=== PATIENT | male | born 1960 | race Caucasian/White ===

== ENCOUNTER 2017-08-11 11:03 | Day surgery (SDC) | payer MEDICARE ==
[2017-08-08 12:06] VITALS: BMI 23.3
[2017-08-11 12:09] LABS: BASO # 0.04 K/mm3 (0.0-2.0); BASO % 0.5 % (0.0-3.0); EOS # 0.2 (0.0-0.7); EOS % 2.7 % (1.5-5.0); GRAN # 4.09 (1.4-6.5); GRAN % 55.3 % (50.0-68.0); HEMATOCRIT 37.5 % (42.0-52.0); LYMPH # 2.3 (1.2-3.4); LYMPH % 30.7 % (22.0-35.0); MEAN CORPUSCULAR HEMOGLOBIN 28.8 pg (25.0-35.0); MEAN CORPUSCULAR HGB CONC 33.1 g/dl (31.0-37.0); MEAN PLATELET VOLUME 10.7 fl (7.0-11.0); MONO # 0.8 (0.1-0.6); MONO % 10.8 % (1.0-6.0); RED CELL DISTRIBUTION WIDTH 13.4 % (11.5-14.5); WHITE BLOOD COUNT 7.4 10^3/ul (4.5-11.0)
[2017-08-11 12:21] LABS: BLOOD UREA NITROGEN 16 mg/dL (7-21); CALCIUM 10.1 mg/dL (8.4-10.5); CARBON DIOXIDE 26 mmol/L (21-33); CHLORIDE 103 mmol/L (98-107); CHOLESTEROL 144 mg/dL (130-200); GFR AFRICAN-AMERICAN > 60; GLUCOSE,RANDOM 263 mg/dL (70-110); POTASSIUM 4.7 mmol/L (3.6-5.0); SODIUM 138 mmol/L (132-148)
[2017-08-11 12:28] LABS: INR 1.07 (0.93-1.08); PARTIAL THROMBOPLASTIN TIME 32.5 Seconds (25.1-36.5)
[2017-08-11 12:31] VITALS: O2SAT 100
[2017-08-11] MEDS ORDERED: Midazolam 2 MG/2 ML VIAL ONE ×2 (13:10→14:45)
[2017-08-11] MEDS ORDERED: Iodixanol 320 MG/ML 200 ML BOTTLE IV ONE (13:11)
[2017-08-11] MEDS ORDERED: Iohexol 350mgl/ml 50 ML ONE (13:11)
[2017-08-11] MEDS ORDERED: Lidocaine 2% Inj (20ml) ONE (13:12)
[2017-08-11] MEDS: Sodium Chloride 0.9% 1,000 ML IV SCH (15:50)
--- NOTE | 2017-08-11 17:06 | CP.PCM.PN ---
Subjective - Date & Time of Evaluation Date of Evaluation: 08/11/17 Time of Evaluation: 17:04 - Subjective Subjective: 4& M with hx of severe , CAD s/p CABG x 4, DM, HTN, Hypothyroidism and TAVR candidate Braught to [facility] for SVG to Diag intervention S/P Successful SVG to Diag (95% stenosis) with KOREY Normal EF Other grafts patent Admit to Hospitalist service for overnight observation Please continue all his Meds Hold Metformin for 2 days ISS Start Plavix 75 daily Gentle Hydration F/U with my office Friday Objective - Vital Signs/Intake and Output Vital Signs (last 24 hours): Temp Pulse Resp BP Pulse Ox 98 F 62 18 144/71 100 08/11/17 15:40 08/11/17 15:40 08/11/17 15:40 08/11/17 15:40 08/11/17 11:55 - Medications Medications: Current Medications Acetaminophen (Tylenol 325mg Tab) 650 mg PO Q4H PRN PRN Reason: Pain, Mild (1-3) Aspirin (Ecotrin) 81 mg PO DAILY BRET Atorvastatin Calcium (Lipitor) 40 mg PO DIN BRET Clopidogrel Bisulfate (Plavix) 75 mg PO DAILY [facility] Sodium Chloride (Sodium Chloride 0.9%) 1,000 mls @ 40 mls/hr IV .Q24H BRET - Labs Labs: 08/11/17 11:55 08/11/17 11:55 PT 11.8 SECONDS (9.4-12.5) 08/11/17 11:55 INR 1.07 (0.93-1.08) 08/11/17 11:55 APTT 32.5 Seconds (25.1-36.5) 08/11/17 11:55
--- NOTE | 2017-08-11 17:51 | CP.PCM.HP ---
<Matt Bonds - Last Filed: 08/11/17 18:02> History of Present Illness - History of Present Illness History of Present Illness: This is a 56 year old male with a past medical history of sever , CAD s/p CABGX4, dm, htn, hypothyrodism and TAVR candidate who comes in for SVG to Diagonal intervention. The patient successfully completed SVG to Diag (95% stenosis) with KOREY. The patient does report a decrease in exercise tolerance. The patient denies any chest pain, shortness of breath, nausea, vomiting, changes in vision, fevers, chills, tremors, headaches, recent sick contacts, syncopal episodes or any other complaints. PMD: Dr. Liz Past medical history: Diabetes, aortic stenosis, hyperlipidemia Medications: See MAR Allergies: NKDA Socialhx: Former smoker. Occasional beer drinker. Lives with girlfriend. Able to do all ADL's. Present on Admission - Present on Admission Any Indicators Present on Admission: No Review of Systems - Constitutional Constitutional: As Per HPI - EENT Eyes: As Per HPI Ears: As Per HPI Nose/Mouth/Throat: As Per HPI - Cardiovascular Cardiovascular: As Per HPI - Respiratory Respiratory: As Per HPI - Gastrointestinal Gastrointestinal: As Per HPI - Musculoskeletal Musculoskeletal: As Per HPI - Integumentary Integumentary: As Per HPI - Neurological Neurological: As Per HPI - Psychiatric Psychiatric: As Per HPI - Endocrine Endocrine: As Per HPI - Hematologic/Lymphatic Hematologic: As Per HPI Past Patient History - Tetanus Immunizations Tetanus Immunization: Up to Date - Past Social History Smoking Status: Never Smoked - CARDIAC Hx Pacemaker: No - PULMONARY Hx Respiratory Disorders: No - NEUROLOGICAL Hx Paralysis: No - HEENT Hx HEENT Problems: No - RENAL Hx Chronic Kidney Disease: No - ENDOCRINE/METABOLIC Hx Endocrine Disorders: Yes Other/Comment: DM - HEMATOLOGICAL/ONCOLOGICAL Hx Blood Transfusions: No - INTEGUMENTARY Hx Dermatological Problems: No - MUSCULOSKELETAL/RHEUMATOLOGICAL Hx Musculoskeletal Disorders: No - GASTROINTESTINAL Hx Gastrointestinal Disorders: No - GENITOURINARY/GYNECOLOGICAL Hx Genitourinary Disorders: No - PSYCHIATRIC Hx Emotional Abuse: No Hx Physical Abuse: No Hx Substance Use: No - SURGICAL HISTORY Hx Surgeries: Yes - ANESTHESIA Hx Anesthesia Reactions: No Hx Malignant Hyperthermia: No Meds Allergies/Adverse Reactions: Allergies Allergy/AdvReac Type Severity Reaction Status Date / Time No Known Allergies Allergy Verified 04/25/13 01:06 Physical Exam - Head Exam Head Exam: ATRAUMATIC, NORMAL INSPECTION, NORMOCEPHALIC - Eye Exam Eye Exam: EOMI, Normal appearance, PERRL. absent: Periorbital tenderness Pupil Exam: NORMAL ACCOMODATION. absent: Irregular, Unequal - ENT Exam ENT Exam: Mucous Membranes Moist, Normal Exam, Normal Oropharynx - Neck Exam Neck exam: Positive for: Normal Inspection. Negative for: Lymphadenopathy, Meningismus, Thyromegaly - Respiratory Exam Respiratory Exam: Clear to Auscultation Bilateral, NORMAL BREATHING PATTERN. absent: Chest Wall Tenderness, Prolonged Expiratory Phase, Respiratory Distress - Cardiovascular Exam Cardiovascular Exam: REGULAR RHYTHM, RRR, +S1, +S2. absent: Gallop, Rubs - GI/Abdominal Exam GI & Abdominal Exam: Normal Bowel Sounds, Soft. absent: Organomegaly, Tenderness - Back Exam Back exam: NORMAL INSPECTION. absent: CVA tenderness (L), CVA tenderness (R), paraspinal tenderness - Neurological Exam Neurological exam: Alert, CN II-XII Intact, Oriented x3 - Psychiatric Exam Psychiatric exam: Normal Affect, Normal Mood - Skin Skin Exam: Dry, Intact, Normal Color Results - Vital Signs Recent Vital Signs: Last Vital Signs Temp 98 F 08/11/17 15:40 Pulse 62 08/11/17 15:40 Resp 18 08/11/17 15:40 BP 144/71 08/11/17 15:40 Pulse Ox 100 08/11/17 11:55 - Labs Result Diagrams: 08/11/17 11:55 08/11/17 11:55 Labs: Laboratory Results - last 24 hr 08/11/17 08/11/17 08/11/17 11:55 11:55 11:55 WBC 7.4 D RBC 4.31 Hgb 12.4 L Hct 37.5 L MCV 87.0 MCH 28.8 MCHC 33.1 RDW 13.4 Plt Count 253 MPV 10.7 Gran % 55.3 Lymph % (Auto) 30.7 [place] % (Auto) 10.8 H Eos % (Auto) 2.7 Baso % (Auto) 0.5 Gran # 4.09 Lymph # 2.3 [place] # 0.8 H Eos # 0.2 Baso # 0.04 PT 11.8 INR 1.07 APTT 32.5 Sodium 138 Potassium 4.7 Chloride 103 Carbon Dioxide 26 Anion Gap 14 BUN 16 Creatinine 0.7 L Est GFR ( Amer) > 60 Est GFR (Non-Af Amer) > 60 Random Glucose 263 H Calcium 10.1 Triglycerides 107 Cholesterol 144 LDL Cholesterol Direct 76 HDL Cholesterol 45 Blood Type Antibody Screen BBK History Checked 08/11/17 11:55 WBC RBC Hgb Hct MCV MCH MCHC RDW Plt Count MPV Gran % Lymph % (Auto) [place] % (Auto) Eos % (Auto) Baso % (Auto) Gran # Lymph # [place] # Eos # Baso # PT INR APTT Sodium Potassium Chloride Carbon Dioxide Anion Gap BUN Creatinine Est GFR ( Amer) Est GFR (Non-Af Amer) Random Glucose Calcium Triglycerides Cholesterol LDL Cholesterol Direct HDL Cholesterol Blood Type A POSITIVE Antibody Screen Negative BBK History Checked Patient has bt Assessment & Plan - Assessment and Plan (Free Text) Assessment: This is a 56 year old male with a past medical history of sever , CAD s/p CABGX4, dm, htn, hypothyrodism and TAVR candidate who comes in for SVG to Diagonal intervention. Plan: 1. S/p Cardiac cath placement. -s/p SVG to Diagonal intervention performed by Dr. Liz. -Patient to be monitored overnight and discharged in the A.M. pending no acute event. 2. h/o Aortic stenosis -Patient a candidate for TAVR. -To be followed up on outpatient basis. 3.D.M. -Hold home meds. -Start ISS. -Accuchecks. Diabetic diet. 4.Hypertension -restart home meds tomorrow morning. -Will continue to monitor closely. 5.Hypothyroidism -continue home meds. <Ester Pizano - Last Filed: 08/12/17 15:08> Results - Vital Signs Recent Vital Signs: Last Vital Signs Temp 98.1 F 08/12/17 12:00 Pulse 68 08/12/17 12:00 Resp 18 08/12/17 12:00 BP 148/69 08/12/17 12:00 Pulse Ox 100 08/12/17 05:56 - Labs Result Diagrams: 08/12/17 06:00 08/12/17 06:00 Labs: Laboratory Results - last 24 hr 08/11/17 08/12/17 08/12/17 22:06 02:00 06:00 WBC RBC Hgb Hct MCV MCH MCHC RDW Plt Count MPV Gran % Lymph % (Auto) [place] % (Auto) Eos % (Auto) Baso % (Auto) Gran # Lymph # [place] # Eos # Baso # Sodium 139 Potassium 3.8 Chloride 105 Carbon Dioxide 28 Anion Gap 10 BUN 12 Creatinine 0.7 L Est GFR ( Amer) > 60 Est GFR (Non-Af Amer) > 60 POC Glucose (mg/dL) 275 H 273 H Random Glucose 165 H Calcium 9.0 Total Bilirubin 0.6 AST 31 ALT 49 Alkaline Phosphatase 52 Total Protein 6.4 Albumin 3.6 Globulin 2.8 Albumin/Globulin Ratio 1.3 08/12/17 08/12/17 08/12/17 06:00 07:35 11:08 WBC 6.0 RBC 3.86 Hgb 11.0 L Hct 33.5 L MCV 86.8 MCH 28.5 MCHC 32.8 RDW 13.5 Plt Count 202 MPV 10.4 Gran % 55.3 Lymph % (Auto) 29.0 [place] % (Auto) 11.9 H Eos % (Auto) 3.5 Baso % (Auto) 0.3 Gran # 3.33 Lymph # 1.8 [place] # 0.7 H Eos # 0.2 Baso # 0.02 Sodium Potassium Chloride Carbon Dioxide Anion Gap BUN Creatinine Est GFR ( Amer) Est GFR (Non-Af Amer) POC Glucose (mg/dL) 151 H 364 H Random Glucose Calcium Total Bilirubin AST ALT Alkaline Phosphatase Total Protein Albumin Globulin Albumin/Globulin Ratio Attending/Attestation - Attestation I have personally seen and examined this patient.: Yes I have fully participated in the care of the patient.: Yes I have reviewed all pertinent clinical information: Yes Notes (Text): I have seen and examined the patient at bedside. Agree with the above note with the following additions/ exceptions: Briefly this is 56 year old male with history of essential hypertension, DM-2, hypothyroidism, CAD s/p CABG, Severe and TAVR candidate who had a cardiac cath today and found to have diagonal stenosis s/p drug eluting stent. Echo revealed normal EF. Patient feels well and denies any complaints. Continue aspirin. Plavix was started. Advised to hold metformin for 48 hours. Start gentle hydration and ISS. Upon discharge patient will follow up with Dr Liz within 3-[address] Ester Pizano
--- NOTE | 2017-08-11 18:48 | CARD ---
APPROVED REPORT EKG Measurement Heart [id number] <Conclusion> Normal sinus rhythm Left ventricular hypertrophy with repolarization abnormality Abnormal ECG
[2017-08-11] MEDS: Insulin Detemir 100 units/ml Vial (Levemir) SC SCH (22:17)
[2017-08-12] MEDS: Sodium Chloride 0.9% 1,000 ML IV SCH (04:24)
[2017-08-12 06:57] LABS: BASO # 0.02 K/mm3 (0.0-2.0); BASO % 0.3 % (0.0-3.0); EOS # 0.2 (0.0-0.7); EOS % 3.5 % (1.5-5.0); GRAN # 3.33 (1.4-6.5); GRAN % 55.3 % (50.0-68.0); HEMATOCRIT 33.5 % (42.0-52.0); LYMPH # 1.8 (1.2-3.4); MEAN CELL VOLUME 86.8 fl (80.0-105.0); MEAN CORPUSCULAR HEMOGLOBIN 28.5 pg (25.0-35.0); MEAN CORPUSCULAR HGB CONC 32.8 g/dl (31.0-37.0); MEAN PLATELET VOLUME 10.4 fl (7.0-11.0); MONO # 0.7 (0.1-0.6); MONO % 11.9 % (1.0-6.0); RED CELL DISTRIBUTION WIDTH 13.5 % (11.5-14.5)
[2017-08-12 07:25] LABS: ALB/GLOB RATIO 1.3 (1.1-1.8); ALKALINE PHOSPHATASE 52 U/L (38-126); ALT/SGPT 49 U/L (7-56); AST/SGOT 31 U/L (17-59); BILIRUBIN,TOTAL 0.6 mg/dL (0.2-1.3); BLOOD UREA NITROGEN 12 mg/dL (7-21); CARBON DIOXIDE 28 mmol/L (21-33); CHLORIDE 105 mmol/L (98-107); GFR AFRICAN-AMERICAN > 60; GLUCOSE,RANDOM 165 mg/dL (70-110); POTASSIUM 3.8 mmol/L (3.6-5.0); SODIUM 139 mmol/L (132-148); TOTAL PROTEIN 6.4 g/dL (5.8-8.3)
[2017-08-12] MEDS: Insulin Detemir 100 units/ml Vial (Levemir) SC SCH (09:40)
[2017-08-12 11:06] VITALS: PULSE 68
[2017-08-12 13:09] VITALS: BP 148/69; RESP 18; TEMP 98.1
--- NOTE | 2017-08-12 14:08 | CP.PCM.DIS ---
<Matt Bonds - Last Filed: 08/12/17 15:53> Provider - Provider Attending physician: Ester Pizano MD Primary care physician: Jennifer Medrano MD Time Spent in preparation of Discharge (in minutes): 45 Hospital Course - Lab Results Lab Results: Most Recent Lab Values WBC 6.0 10^3/ul (4.5-11.0) 08/12/17 06:00 RBC 3.86 10^6/uL (3.5-6.1) 08/12/17 06:00 Hgb 11.0 g/dL (14.0-18.0) L 08/12/17 06:00 Hct 33.5 % (42.0-52.0) L 08/12/17 06:00 MCV 86.8 fl (80.0-105.0) 08/12/17 06:00 MCH 28.5 pg (25.0-35.0) 08/12/17 06:00 MCHC 32.8 g/dl (31.0-37.0) 08/12/17 06:00 RDW 13.5 % (11.5-14.5) 08/12/17 06:00 Plt Count 202 10^3/uL (120.0-450.0) 08/12/17 06:00 MPV 10.4 fl (7.0-11.0) 08/12/17 06:00 Gran % 55.3 % (50.0-68.0) 08/12/17 06:00 Lymph % (Auto) 29.0 % (22.0-35.0) 08/12/17 06:00 [place] % (Auto) 11.9 % (1.0-6.0) H 08/12/17 06:00 Eos % (Auto) 3.5 % (1.5-5.0) 08/12/17 06:00 Baso % (Auto) 0.3 % (0.0-3.0) 08/12/17 06:00 Gran # 3.33 (1.4-6.5) 08/12/17 06:00 Lymph # 1.8 (1.2-3.4) 08/12/17 06:00 [place] # 0.7 (0.1-0.6) H 08/12/17 06:00 Eos # 0.2 (0.0-0.7) 08/12/17 06:00 Baso # 0.02 K/mm3 (0.0-2.0) 08/12/17 06:00 PT 11.8 SECONDS (9.4-12.5) 08/11/17 11:55 INR 1.07 (0.93-1.08) 08/11/17 11:55 APTT 32.5 Seconds (25.1-36.5) 08/11/17 11:55 Sodium 139 mmol/L (132-148) 08/12/17 06:00 Potassium 3.8 mmol/L (3.6-5.0) 08/12/17 06:00 Chloride 105 mmol/L (98-107) 08/12/17 06:00 Carbon Dioxide 28 mmol/L (21-33) 08/12/17 06:00 Anion Gap 10 (10-20) 08/12/17 06:00 BUN 12 mg/dL (7-21) 08/12/17 06:00 Creatinine 0.7 mg/dl (0.8-1.5) L 08/12/17 06:00 Est GFR ( Amer) > 60 08/12/17 06:00 Est GFR (Non-Af Amer) > 60 08/12/17 06:00 POC Glucose (mg/dL) 364 mg/dL (65-110) H 08/12/17 11:08 Random Glucose 165 mg/dL (70-110) H 08/12/17 06:00 Calcium 9.0 mg/dL (8.4-10.5) 08/12/17 06:00 Total Bilirubin 0.6 mg/dL (0.2-1.3) 08/12/17 06:00 AST 31 U/L (17-59) 08/12/17 06:00 ALT 49 U/L (7-56) 08/12/17 06:00 Alkaline Phosphatase 52 U/L (38-126) 08/12/17 06:00 Total Protein 6.4 g/dL (5.8-8.3) 08/12/17 06:00 Albumin 3.6 g/dL (3.0-4.8) 08/12/17 06:00 Globulin 2.8 gm/dL 08/12/17 06:00 Albumin/Globulin Ratio 1.3 (1.1-1.8) 08/12/17 06:00 Triglycerides 107 mg/dL (35-160) 08/11/17 11:55 Cholesterol 144 mg/dL (130-200) 08/11/17 11:55 LDL Cholesterol Direct 76 mg/dL (0-129) 08/11/17 11:55 HDL Cholesterol 45 mg/dL (29-60) 08/11/17 11:55 Blood Type A POSITIVE 08/11/17 11:55 Antibody Screen Negative 08/11/17 11:55 BBK History Checked Patient has bt 08/11/17 11:55 - Hospital Course Hospital Course: This is a 56 year old male with a past medical history of sever , CAD s/p CABGX4, dm, htn, hypothyrodism and TAVR candidate who comes in for SVG to Diagonal intervention. The patient successfully completed SVG to Diag (95% stenosis) with KOREY. The patient does report a decrease in exercise tolerance. The patient denies any chest pain, shortness of breath, nausea, vomiting, changes in vision, fevers, chills, tremors, headaches, recent sick contacts, syncopal episodes or any other complaints. The patient was admitted for observation s/p coronary stent placement. While admitted the patient was seen by Dr. Liz. The patient was seen this morning with no complaints. The patient was referred to a Study Director to get a list of acceptable food options since he has a history of CAD. The patient was discharged with instruction to follow up with Dr. Liz and to return to emergency department for any new or worsening symptoms. Discharge Exam - Head Exam Head Exam: ATRAUMATIC, NORMAL INSPECTION, NORMOCEPHALIC - Eye Exam Eye Exam: EOMI, Normal appearance, PERRL Pupil Exam: NORMAL ACCOMODATION, PERRL - ENT Exam ENT Exam: Mucous Membranes Moist, Normal Oropharynx - Respiratory Exam Respiratory Exam: Clear to PA & Lateral, NORMAL BREATHING PATTERN, UNREMARKABLE - Cardiovascular Exam Cardiovascular Exam: REGULAR RHYTHM, +S1, +S2, Systolic Murmur - GI/Abdominal Exam GI & Abdominal Exam: Normal Bowel Sounds, Unremarkable - Extremities Exam Extremities exam: full ROM - Neurological Exam Neurological exam: Alert, CN II-XII Intact, Oriented x3 - Psychiatric Exam Psychiatric exam: Normal Affect, Normal Mood - Skin Skin Exam: Dry, Intact Discharge Plan - Discharge Medications Prescriptions: Clopidogrel [Plavix] 75 mg PO DAILY #30 tab Clopidogrel [Plavix] 75 mg PO DAILY #14 tab - Follow Up Plan Condition: GOOD Disposition: HOME/ ROUTINE Instructions: Coronary Artery Disease (GEN), Heart Healthy Diet (GEN), Coronary Angioplasty (GEN) Additional Instructions: Patient advised to f/u with PMD within one week of discharge. Follow up with on Friday. Patient advised to restart Metformin 72 hours after cardiac stent placement. Patient given information by Study Director for foods acceptable for his diet. Patient strongly advised to return to emergency department for any new or worsening symptoms. Referrals: Jennifer Medrano MD [Primary Care Provider] - <Ester Pizano - Last Filed: 08/12/17 17:38> Provider - Provider Attending physician: Ester Pizano MD Primary care physician: Jennifer Medrano MD Hospital Course - Lab Results Lab Results: Most Recent Lab Values WBC 6.0 10^3/ul (4.5-11.0) 08/12/17 06:00 RBC 3.86 10^6/uL (3.5-6.1) 08/12/17 06:00 Hgb 11.0 g/dL (14.0-18.0) L 08/12/17 06:00 Hct 33.5 % (42.0-52.0) L 08/12/17 06:00 MCV 86.8 fl (80.0-105.0) 08/12/17 06:00 MCH 28.5 pg (25.0-35.0) 08/12/17 06:00 MCHC 32.8 g/dl (31.0-37.0) 08/12/17 06:00 RDW 13.5 % (11.5-14.5) 08/12/17 06:00 Plt Count 202 10^3/uL (120.0-450.0) 08/12/17 06:00 MPV 10.4 fl (7.0-11.0) 08/12/17 06:00 Gran % 55.3 % (50.0-68.0) 08/12/17 06:00 Lymph % (Auto) 29.0 % (22.0-35.0) 08/12/17 06:00 [place] % (Auto) 11.9 % (1.0-6.0) H 08/12/17 06:00 Eos % (Auto) 3.5 % (1.5-5.0) 08/12/17 06:00 Baso % (Auto) 0.3 % (0.0-3.0) 08/12/17 06:00 Gran # 3.33 (1.4-6.5) 08/12/17 06:00 Lymph # 1.8 (1.2-3.4) 08/12/17 06:00 [place] # 0.7 (0.1-0.6) H 08/12/17 06:00 Eos # 0.2 (0.0-0.7) 08/12/17 06:00 Baso # 0.02 K/mm3 (0.0-2.0) 08/12/17 06:00 PT 11.8 SECONDS (9.4-12.5) 08/11/17 11:55 INR 1.07 (0.93-1.08) 08/11/17 11:55 APTT 32.5 Seconds (25.1-36.5) 08/11/17 11:55 Sodium 139 mmol/L (132-148) 08/12/17 06:00 Potassium 3.8 mmol/L (3.6-5.0) 08/12/17 06:00 Chloride 105 mmol/L (98-107) 08/12/17 06:00 Carbon Dioxide 28 mmol/L (21-33) 08/12/17 06:00 Anion Gap 10 (10-20) 08/12/17 06:00 BUN 12 mg/dL (7-21) 08/12/17 06:00 Creatinine 0.7 mg/dl (0.8-1.5) L 08/12/17 06:00 Est GFR ( Amer) > 60 08/12/17 06:00 Est GFR (Non-Af Amer) > 60 08/12/17 06:00 POC Glucose (mg/dL) 364 mg/dL (65-110) H 08/12/17 11:08 Random Glucose 165 mg/dL (70-110) H 08/12/17 06:00 Calcium 9.0 mg/dL (8.4-10.5) 08/12/17 06:00 Total Bilirubin 0.6 mg/dL (0.2-1.3) 08/12/17 06:00 AST 31 U/L (17-59) 08/12/17 06:00 ALT 49 U/L (7-56) 08/12/17 06:00 Alkaline Phosphatase 52 U/L (38-126) 08/12/17 06:00 Total Protein 6.4 g/dL (5.8-8.3) 08/12/17 06:00 Albumin 3.6 g/dL (3.0-4.8) 08/12/17 06:00 Globulin 2.8 gm/dL 08/12/17 06:00 Albumin/Globulin Ratio 1.3 (1.1-1.8) 08/12/17 06:00 Triglycerides 107 mg/dL (35-160) 08/11/17 11:55 Cholesterol 144 mg/dL (130-200) 08/11/17 11:55 LDL Cholesterol Direct 76 mg/dL (0-129) 08/11/17 11:55 HDL Cholesterol 45 mg/dL (29-60) 08/11/17 11:55 Blood Type A POSITIVE 08/11/17 11:55 Antibody Screen Negative 08/11/17 11:55 BBK History Checked Patient has bt 08/11/17 11:55 Attending/Attestation - Attestation I have personally seen and examined this patient.: Yes I have fully participated in the care of the patient.: Yes I have reviewed all pertinent clinical information, including history, physical exam and plan: Yes Notes (Text): I have seen and examined the patient at bedside. Agree with the above note with the following additions/ exceptions: Briefly this is 56 year old male with history of essential hypertension, DM-2, hypothyroidism, CAD s/p CABG, Severe and TAVR candidate who had a cardiac cath and found to have diagonal stenosis s/p drug eluting stent. Echo revealed normal EF. Patient feels well and denies any complaints. Continue aspirin and plavix. Advised the patient to hold metformin for 48 hours. Upon discharge patient will follow up with Dr Liz within 3-[address] Ester Pizano
--- NOTE | 2017-08-18 08:26 | CARDCATH ---
PROCEDURE DATE: 08/11/2017 PROCEDURE: Percutaneous coronary angioplasty of the saphenous vein graft to diagonal artery and drug-eluting stent placement. REFERRING PHYSICIAN: Jennifer Medrano MD. PERFORMING PHYSICIAN: Doug Liz MD CLINICAL INDICATIONS: 1. Angina. 2. Dyspnea. 3. Severe aortic stenosis. 4. Diabetes. 5. History of coronary artery disease, status post CABG x4. 6. Hyperlipidemia. PROCEDURE: After informed consent, the patient was prepped and draped in the usual sterile fashion. A 2% lidocaine was given in the right groin for local anesthesia. Using micropuncture technique, 6-Georgian sheath was introduced into the right common femoral artery. The patient was preloaded with aspirin, Plavix, and IV heparin. ACT was maintained above 250. A 6-Georgian JR4 guide catheter was engaged into the saphenous vein graft. Initial angiogram confirmed 95% anastomotic lesion of the vein graft to diagonal artery. There was FIDENCIO-2 flow distally. The lesion was predilated using 2.0 x 15 complaint balloon. Stented with 2.25 x 23 Xience Alpine with excellent final angiographic results and brisk FIDENCIO-3 flow. CONCLUSION: Successful coronary intervention of the saphenous vein graft to the diagonal artery. Recommend dual antiplatelet therapy for one year. Continue aspirin, statin, and beta-blockers. Doug Liz MD
== END 2017-08-12 13:31 | disposition home or self-care (01) ==
LOC: CATH 11:03 → 2RSO 15:48 → CATH 08-12 13:31
PROVIDERS: ATTEND Hospitalist
DX: I25.10 Atherosclerotic heart disease of native coronary artery without angina pectoris (principal); E03.9 Hypothyroidism, unspecified; E11.9 Type 2 diabetes mellitus without complications; E78.5 Hyperlipidemia, unspecified; I10 Essential (primary) hypertension; I35.0 Nonrheumatic aortic (valve) stenosis; Z79.82 Long term (current) use of aspirin; Z95.1 Presence of aortocoronary bypass graft; Z95.5 Presence of coronary angioplasty implant and graft; Z98.890 Other specified postprocedural states
CPT/HCPCS: 36415 ×2; 80048; 80053; 80061; 82948 ×2; 85025 ×2; 85610; 85730; 86850; 86900; 93005; 99152; 99153; C1725; C1760; C1769; C1874; C1887; C1894; C9600; J1644 ×2; J2250; J3010; J7040 ×2; Q9967

== ENCOUNTER 2018-10-10 15:22 | Inpatient (IN) | payer MEDICARE, OTHER ==
[2018-10-10 15:31] VITALS: BMI 23.1
--- NOTE | 2018-10-10 15:50 | ED PDOC ---
Arrival/HPI - General Chief Complaint: Chest Pain Time Seen by Provider: 10/10/18 15:28 Historian: Patient, Family (two nieces) - History of Present Illness Narrative History of Present Illness (Text): 10/10/18 15:50 A 57 year old male, whose past medical history includes 3 CABBG surgeries, stent, hypertension, diabetes, and hyperlipidemia, presents to the emergency department complaining of shortness of breath and chest pain for 1 week. Patient describe pain as sharp, non radiating and also reports experiencing leg pain along with cough with white sputum. Patient states he saw his primary care doctor, Dr. Medrano, who urged him to go to the hospital for evaluation. Patient reports he was sitting when chest pain occurred and has taken his regular medication to no relief of symptoms. Patient notes he recently traveled and came back from [facility] over a week ago before chest pain symptoms started. Patient denies any fever, chills, diarrhea, nausea, vomiting, headache, dizziness, or any other complaints. PMD: Jennifer Marsh Time/Duration: 1 week Symptom Onset: Gradual Symptom Course: Unchanged Activities at Onset: Light Context: Home Past Medical History - Provider Review Nursing Documentation Reviewed: Yes - Infectious Disease Hx of Infectious Diseases: None - Tetanus Immunization Tetanus Immunization: Up to Date - Cardiac Hx Coronary Artery Disease: Yes Hx Hypertension: Yes - Pulmonary Hx Respiratory Disorders: No - Neurological Hx Paralysis: No - HEENT Hx HEENT Disorder: No - Renal Hx Renal Disorder: No - Endocrine/Metabolic Hx Endocrine Disorders: Yes Other/Comment: DM - Hematological/Oncological Hx Blood Transfusions: No - Integumentary Hx Dermatological Disorder: No - Musculoskeletal/Rheumatological Hx Musculoskeletal Disorders: No - Gastrointestinal Hx Gastrointestinal Disorders: No - Genitourinary/Gynecological Hx Genitourinary Disorders: No - Psychiatric Hx Depression: Yes Hx Substance Use: No - Past Surgical History Past Surgical History: No Previous - Surgical History Hx Coronary Stent: Yes (x3) - Anesthesia Hx Malignant Hyperthermia: No - Suicidal Assessment Feels Threatened In Home Enviroment: No Family/Social History - Physician Review Nursing Documentation Reviewed: Yes Family/Social History: No Known Family HX Smoking Status: Never Smoked Hx Alcohol Use: No Hx Substance Use: No Hx Substance Use Treatment: No Allergies/Home Meds Allergies/Adverse Reactions: Allergies No Known Allergies Allergy (Verified 10/15/17 13:07) Home Medications: Home Meds Medication Instructions Recorded Confirmed Acetaminophen [Tylenol 325mg tab] 325 mg PO PRN PRN 08/01/17 10/10/18 Aspirin [Ecotrin] 81 mg PO QAM 08/01/17 10/10/18 Atorvastatin [Lipitor] 80 mg PO QPM 08/01/17 10/10/18 Carvedilol [Coreg] 6.25 mg PO BID 08/01/17 10/10/18 Furosemide [Lasix] 20 mg PO QAM 08/01/17 10/10/18 Insulin Glargine, Recombina 50 unit SC HS 08/01/17 10/10/18 [Lantus] Lisinopril [Zestril] 10 mg PO QAM 08/01/17 10/10/18 MetFORMIN [glucoPHAGE] 1,000 mg PO BID 08/01/17 10/10/18 Review of Systems - Physician Review All systems were reviewed & negative as marked: Yes - Review of Systems Constitutional: absent: Fevers, Other (chills) Respiratory: SOB Cardiovascular: Chest Pain Gastrointestinal: absent: Diarrhea, Nausea, Vomiting Musculoskeletal: Other (leg pain) Neurological: absent: Headache, Dizziness Physical Exam Vital Signs Reviewed: Yes Temperature: Afebrile Blood Pressure: Hypertensive Pulse: Regular Respiratory Rate: Normal - Systems Exam Head: Present: Atraumatic, Normocephalic Pupils: Present: PERRL Extroacular Muscles: Present: EOMI Conjunctiva: Present: Normal Mouth: Present: Moist Mucous Membranes Pharnyx: Present: Normal Neck: No: JVD Respiratory/Chest: Present: Clear to Auscultation, Good Air Exchange. No: Respiratory Distress, Accessory Muscle Use Cardiovascular: Present: Regular Rate and Rhythm, Normal S1, S2. No: Murmurs Abdomen: No: Tenderness, Distention, Peritoneal Signs Back: Present: Normal Inspection Upper Extremity: Present: Normal Inspection. No: Cyanosis, Edema Lower Extremity: Present: Normal Inspection. No: Edema Neurological: Present: GCS=15, CN II-XII Intact, Speech Normal, Motor Func Grossly Intact (5 out of 5) Skin: Present: Other (scar midchest related to CABBG) Psychiatric: Present: Alert, Oriented x 3, Normal Insight, Normal Concentration Medical Decision Making ED Course and Treatment: 10/10/18 15:50 Impression: 57 year old male presents to the emergency department complaining of shortness of breath and chest pain Plan: -- EKG -- Labs -- CBC -- D Dimer -- Chest X-ray -- Aspirin -- Urinalysis -- Reassess and disposition Prior Visits: Notes and results from previous visits were reviewed. Patient was seen in the ER on 10/15/17 for shortness of breath and was discharged when symptoms improved. Progress Notes: 10/10/18 15:52 EKG: Ordered, reviewed, and independently interpreted the EKG. Rate : 75 BPM Rhythm : NSR Interpretation : Normal axis. - Scribe Statement The provider has reviewed the documentation as recorded by the Gloria Walker All medical record entries made by the Gloria were at my direction and personally dictated by me. I have reviewed the chart and agree that the record accurately reflects my personal performance of the history, physical exam, medical decision making, and the department course for this patient. I have also personally directed, reviewed, and agree with the discharge instructions and disposition. Disposition/Present on Arrival - Present on Arrival Any Indicators Present on Arrival: No History of DVT/PE: No History of Uncontrolled Diabetes: No Urinary Catheter: No History of Decub. Ulcer: No History Surgical Site Infection Following: None - Disposition Have Diagnosis and Disposition been Completed?: Yes Diagnosis: Chest pain Disposition: HOSPITALIZED Disposition Time: 17:55 Condition: GOOD
[2018-10-10 16:23] LABS: BASO # 0.04 K/mm3 (0.0-2.0); BASO % 0.5 % (0.0-3.0); EOS # 0.2 (0.0-0.7); EOS % 3.1 % (1.5-5.0); HEMOGLOBIN 11.3 g/dL (14.0-18.0); LYMPH # 1.4 (1.2-3.4); LYMPH % 18.6 % (22.0-35.0); MEAN CELL VOLUME 86.5 fl (80.0-105.0); MEAN CORPUSCULAR HEMOGLOBIN 28.3 pg (25.0-35.0); MEAN CORPUSCULAR HGB CONC 32.8 g/dl (31.0-37.0); MEAN PLATELET VOLUME 10.5 fl (7.0-11.0); MONO # 0.8 (0.1-0.6); MONO % 10.2 % (1.0-6.0); RBC 3.99 10^6/uL (3.5-6.1); RED CELL DISTRIBUTION WIDTH 14.1 % (11.5-14.5); WHITE BLOOD COUNT 7.5 10^3/uL (4.5-11.0)
[2018-10-10 16:34] LABS: ALB/GLOB RATIO 1.2 (1.1-1.8); ALBUMIN 3.5 g/dL (3.0-4.8); ALT/SGPT 33 U/L (7-56); AST/SGOT 34 U/L (17-59); BLOOD UREA NITROGEN 12 mg/dL (7-21); CALCIUM 9.6 mg/dL (8.4-10.5); GFR NON-AFRICAN AMERICAN > 60
[2018-10-10 16:44] LABS: TROPONIN I 0.04 ng/mL
[2018-10-10] MEDS ORDERED: Dextrose 50% SYRINGE Inj (50 ml) IV PRN (19:11)
--- NOTE | 2018-10-10 19:33 | CP.PCM.HP ---
History of Present Illness - History of Present Illness History of Present Illness: HISTORY & PHYSICAL NOTE FOR HOSPITALIST SERVICE- DR. PIPO Walsh PGY1 57 y/o M with PMHx of CAD s/p CABG x 4, severe s/p TAVR @ [facility] [place](per pt), DM, HTN, hypothyroidism presents to ED with complaints of SOB that's been ongoing for the past week. Pt noted that he can normally walk about 1/2 block without getting short of breath, but recently when he stands up to go to bathroom he feels SOB. Symptoms are worse with exertion, alleviated with rest. He is reporting that he currently feeling short of breath, but denies current chest pain, however reported chest pain to ED staff. Pt had seen his insurance customer service specialist/PMD Dr. Medrano yesterday who advised him to visit ED. He had taken aspirin before arriving to ED. He reports that he sleeps with 2 pillows at night, and will feel short of breath if he lies flat. He also reports he has had bilateral leg cramping for several months. Pt recently traveled to [facility] a week ago before chest pain began. He denies fevers, chills, headache, dizziness, palpitations, nausea, vomiting, constipation, diarrhea, dysuria. PMH: CAD s/p CABG x 4, severe s/p TAVR @ [facility] [place](per pt), DM, HTN, hypothyroidism All: Denies PSH: R shoulder surgery Hosp: Has been to [facility] in the past FH: Father: Heart disease, Brother @ age 47 from [place] Meds: metformin 1000mg bid, calcium 500mg tid, clopidogrel 75mg qd, furosemide 20mg, aspirin 81mg, carvedilol 6.25, lisinopril 10mg, levemir 50u HS PMD: & Line Supply: Dr. Medrano Pharmacy: [facility] pharmacy Present on Admission - Present on Admission Any Indicators Present on Admission: No Review of Systems - Review of Systems Review of Systems: per HPI Past Patient History - Infectious Disease Hx of Infectious Diseases: None - Tetanus Immunizations Tetanus Immunization: Up to Date - Past Social History Smoking Status: Never Smoked - CARDIAC Hx Hypertension: Yes - PULMONARY Hx Respiratory Disorders: No - NEUROLOGICAL Hx Paralysis: No - HEENT Hx HEENT Problems: No - RENAL Hx Chronic Kidney Disease: No - ENDOCRINE/METABOLIC Hx Endocrine Disorders: Yes Other/Comment: DM - HEMATOLOGICAL/ONCOLOGICAL Hx Blood Transfusions: No - INTEGUMENTARY Hx Dermatological Problems: No - MUSCULOSKELETAL/RHEUMATOLOGICAL Hx Musculoskeletal Disorders: No - GASTROINTESTINAL Hx Gastrointestinal Disorders: No - GENITOURINARY/GYNECOLOGICAL Hx Genitourinary Disorders: No - PSYCHIATRIC Hx Depression: Yes Hx Substance Use: No - SURGICAL HISTORY Hx Coronary Stent: Yes (x3) - ANESTHESIA Hx Malignant Hyperthermia: No Meds Allergies/Adverse Reactions: Allergies Allergy/AdvReac Type Severity Reaction Status Date / Time No Known Allergies Allergy Verified 10/15/17 13:07 Physical Exam - Constitutional Appears: Well, Non-toxic, No Acute Distress - Head Exam Head Exam: NORMAL INSPECTION, NORMOCEPHALIC - Eye Exam Eye Exam: EOMI, Normal appearance - ENT Exam ENT Exam: Mucous Membranes Moist, Normal Exam - Neck Exam Additional comments: R sided JVD - Respiratory Exam Respiratory Exam: Clear to Auscultation Bilateral, NORMAL BREATHING PATTERN - Cardiovascular Exam Cardiovascular Exam: Gallop, REGULAR RHYTHM, +S1 - GI/Abdominal Exam GI & Abdominal Exam: Soft. absent: Distended, Tenderness - Extremities Exam Extremities exam: Positive for: normal inspection. Negative for: calf tenderness, joint swelling, pedal edema - Back Exam Back exam: NORMAL INSPECTION - Neurological Exam Neurological exam: Alert, Oriented x3 - Psychiatric Exam Psychiatric exam: Normal Affect, Normal Mood - Skin Skin Exam: Dry, Intact, Warm Results - Vital Signs Recent Vital Signs: Last Vital Signs Temp 98.3 F 10/10/18 16:19 Pulse 77 10/10/18 18:11 Resp 17 10/10/18 18:11 BP 169/60 H 10/10/18 18:11 Pulse Ox 96 10/10/18 18:11 - Labs Result Diagrams: 10/10/18 16:12 10/10/18 16:12 Labs: Laboratory Results - last 24 hr 10/10/18 10/10/18 10/10/18 16:12 16:12 16:12 WBC 7.5 RBC 3.99 Hgb 11.3 L Hct 34.5 L MCV 86.5 MCH 28.3 MCHC 32.8 RDW 14.1 Plt Count 247 MPV 10.5 Neut % (Auto) 67.6 Lymph % (Auto) 18.6 L [place] % (Auto) 10.2 H Eos % (Auto) 3.1 Baso % (Auto) 0.5 Lymph # (Auto) 1.4 [place] # (Auto) 0.8 H Eos # (Auto) 0.2 Baso # (Auto) 0.04 Absolute Neuts (auto) 5.06 D-Dimer, Quantitative 221 Sodium 137 Potassium 4.1 Chloride 102 Carbon Dioxide 29 Anion Gap 11 BUN 12 Creatinine 0.7 L Est GFR ( Amer) > 60 Est GFR (Non-Af Amer) > 60 Random Glucose 199 H Calcium 9.6 Magnesium 1.5 L Total Bilirubin 0.4 AST 34 ALT 33 Alkaline Phosphatase 72 Lactate Dehydrogenase 559 Total Creatine Kinase 90 Troponin I 0.04 Total Protein 6.5 Albumin 3.5 Globulin 3.0 Albumin/Globulin Ratio 1.2 Assessment & Plan - Assessment and Plan (Free Text) Assessment: 57 y/o M with PMHx of CAD s/p CABG x 4, severe s/p TAVR @ [facility] [place](per pt), DM, HTN, hypothyroidism presents to ED with complaints of 1 week shortness of breath Plan: Acute on Chronic systolic vs diastolic Heart Failure NYHA class III-IV CXR reveals vascular congestion. EKG reveals no acute ST/T wave changes from p revious EKG Lasix IVP daily Initial troponin indeterminate. Continue to trend Q6h Repeat EKG in 6h Echocardiogram Cardiology consult Strict I&Os Daily weight CAD s/p CABG x 4 Aspirin not given in ED as pt had taken at home continue DAPT with aspirin/plavix continue atorvastatin f/u lipid panel in am HTN continue home carvedilol continue home lisinopril IDDM2 pt takes home metformin, on hold for possible cath continue levemir 50u SC HS insulin sliding scale-medium Case seen, examined and discussed with attending physician, Dr. Shelly Walsh PGY1
[2018-10-10] MEDS ORDERED: Magnesium Sulfate 2 gm/50 ml 2 GM/50 ML BAG IVPB ONE (19:39)
[2018-10-10] MEDS: Insulin Detemir 100 units/ml Vial (Levemir) SC SCH (22:59)
[2018-10-10] MEDS: Insulin Reg-MEDIUM-Coverage SC SCH (23:03)
[2018-10-11 04:19] LABS: BASO # 0.03 K/mm3 (0.0-2.0); BASO % 0.5 % (0.0-3.0); EOS # 0.2 (0.0-0.7); EOS % 3.3 % (1.5-5.0); HEMOGLOBIN 11.2 g/dL (14.0-18.0); LYMPH # 1.5 (1.2-3.4); LYMPH % 24.7 % (22.0-35.0); MEAN CELL VOLUME 85.5 fl (80.0-105.0); MEAN CORPUSCULAR HGB CONC 32.7 g/dl (31.0-37.0); MONO # 0.6 (0.1-0.6); MONO % 10.4 % (1.0-6.0); RED CELL DISTRIBUTION WIDTH 14.1 % (11.5-14.5); WHITE BLOOD COUNT 6.2 10^3/uL (4.5-11.0)
[2018-10-11 04:39] LABS: TROPONIN I 0.04 ng/mL
[2018-10-11 04:40] LABS: ALB/GLOB RATIO 1.2 (1.1-1.8); ALBUMIN 3.5 g/dL (3.0-4.8); ALT/SGPT 30 U/L (7-56); AST/SGOT 24 U/L (17-59); BLOOD UREA NITROGEN 14 mg/dL (7-21); CALCIUM 9.3 mg/dL (8.4-10.5); GFR NON-AFRICAN AMERICAN > 60; HDL CHOLESTEROL 28 mg/dL (29-60); LDL CHOLESTEROL 87 mg/dL (0-129)
[2018-10-11] MEDS: Enoxaparin 40 mg Syringe SC SCH (10:43)
[2018-10-11] MEDS: Insulin Reg-MEDIUM-Coverage SC SCH ×4 (10:51→22:34)
--- NOTE | 2018-10-11 11:25 | CP.PCM.PN ---
<Essence Walsh - Last Filed: 10/11/18 11:20> Subjective - Date & Time of Evaluation Date of Evaluation: 10/11/18 Time of Evaluation: 11:20 - Subjective Subjective: INTERNAL MEDICINE PROGRESS NOTE FOR DR. JACQUELINE Walsh PGY1 Pt seen and examined at bedside this am. Pt is resting comfortably. He reports shortness of breath and has been urinating frequently. He otherwise denies 12 point ROS. Objective - Vital Signs/Intake and Output Vital Signs (last 24 hours): Temp Pulse Resp BP Pulse Ox 98 F 97 H 20 140/80 95 10/11/18 06:00 10/11/18 06:00 10/11/18 06:00 10/11/18 10:44 10/11/18 06:00 Intake and Output: 10/11/18 10/11/18 06:59 18:59 Intake Total 0 Output Total 0 Balance 0 - Medications Medications: Current Medications Aspirin (Ecotrin) 81 mg PO QAM [facility] Last Admin: 10/11/18 10:46 Dose: 81 mg Atorvastatin Calcium (Lipitor) 80 mg PO QPM [facility] Carvedilol (Coreg) 6.25 mg PO BID [facility] Last Admin: 10/11/18 10:46 Dose: 6.25 mg Clopidogrel Bisulfate (Plavix) 75 mg PO DAILY [facility] Last Admin: 10/11/18 10:46 Dose: 75 mg Dextrose (Dextrose 50% Inj) 0 ml IV STAT PRN; Protocol PRN Reason: Hypoglycemia Protocol Enoxaparin Sodium (Lovenox) 40 mg SC DAILY [facility]; Protocol Last Admin: 10/11/18 10:43 Dose: 40 mg Furosemide (Lasix) 40 mg IVP DAILY [facility] Last Admin: 10/11/18 10:44 Dose: 40 mg Dextrose (Dextrose 5% In Water 1000 Ml) 1,000 mls @ 0 mls/hr IV .Q0M PRN; Protocol PRN Reason: Hypoglycemia Protocol Insulin Detemir (Levemir) 50 unit SC HS [facility] Last Admin: 10/10/18 22:59 Dose: 50 units Insulin Human Regular (Humulin R Med) 0 units SC ACHS [facility]; Protocol Last Admin: 10/11/18 10:51 Dose: 1 units Lisinopril (Zestril) 10 mg PO QAM [facility] Last Admin: 10/11/18 10:46 Dose: 10 mg Pantoprazole Sodium (Protonix Inj) 40 mg IVP DAILY [facility] Last Admin: 10/11/18 10:44 Dose: 40 mg - Labs Labs: 10/11/18 04:00 10/11/18 04:00 - Constitutional Appears: Well, Non-toxic, No Acute Distress - Head Exam Head Exam: NORMAL INSPECTION, NORMOCEPHALIC - Eye Exam Eye Exam: EOMI, Normal appearance - ENT Exam ENT Exam: Mucous Membranes Moist, Normal Exam - Neck Exam Additional comments: No JVD - Respiratory Exam Respiratory Exam: Clear to Ausculation Bilateral, NORMAL BREATHING PATTERN - Cardiovascular Exam Cardiovascular Exam: REGULAR RHYTHM, +S1, +S2 - GI/Abdominal Exam GI & Abdominal Exam: Soft, Normal Bowel Sounds. absent: Tenderness - Extremities Exam Extremities Exam: Normal Inspection. absent: Calf Tenderness - Back Exam Back Exam: NORMAL INSPECTION - Neurological Exam Neurological Exam: Alert, Awake, Oriented x3 - Psychiatric Exam Psychiatric exam: Normal Affect, Normal Mood - Skin Skin Exam: Dry, Intact, Warm Assessment and Plan - Assessment and Plan (Free Text) Assessment: 57 y/o M with PMHx of CAD s/p CABG x 4, severe s/p TAVR @ [facility](per pt), DM, HTN, hypothyroidism presents to ED with complaints of 1 week shortness of breath Plan: Acute on Chronic systolic vs diastolic Heart Failure NYHA class III-IV CXR reveals vascular congestion. EKG reveals no acute ST/T wave changes from previous EKG. troponin x 3: indeterminate. BNP 1340 continue lasix IVP daily echocardiogram pending Cardiology consult Strict I&Os Daily weights CAD s/p CABG x 4 Aspirin not given in ED as pt had taken at home continue DAPT with aspirin/plavix continue atorvastatin lipid panel wnl HTN continue home carvedilol continue home lisinopril IDDM2 pt takes home metformin, on hold for possible cath continue levemir 50u SC HS insulin sliding scale-medium DVT/GI: Lovenox/protonix Case seen, examined and discussed with attending physician, Dr. Shelly Walsh PGY1 <Seble Cope - Last Filed: 10/11/18 12:13> Objective - Vital Signs/Intake and Output Vital Signs (last 24 hours): Temp Pulse Resp BP Pulse Ox 98 F 97 H 20 140/80 95 10/11/18 06:00 10/11/18 06:00 10/11/18 06:00 10/11/18 10:44 10/11/18 06:00 Intake and Output: 10/11/18 10/11/18 06:59 18:59 Intake Total 0 Output Total 0 Balance 0 - Medications Medications: Current Medications Aspirin (Ecotrin) 81 mg PO QAM [facility] Last Admin: 10/11/18 10:46 Dose: 81 mg Atorvastatin Calcium (Lipitor) 80 mg PO QPM [facility] Carvedilol (Coreg) 6.25 mg PO BID [facility] Last Admin: 10/11/18 10:46 Dose: 6.25 mg Clopidogrel Bisulfate (Plavix) 75 mg PO DAILY [facility] Last Admin: 10/11/18 10:46 Dose: 75 mg Dextrose (Dextrose 50% Inj) 0 ml IV STAT PRN; Protocol PRN Reason: Hypoglycemia Protocol Enoxaparin Sodium (Lovenox) 40 mg SC DAILY [facility]; Protocol Last Admin: 10/11/18 10:43 Dose: 40 mg Furosemide (Lasix) 40 mg IVP DAILY [facility] Last Admin: 10/11/18 10:44 Dose: 40 mg Dextrose (Dextrose 5% In Water 1000 Ml) 1,000 mls @ 0 mls/hr IV .Q0M PRN; Protocol PRN Reason: Hypoglycemia Protocol Insulin Detemir (Levemir) 50 unit SC HS [facility] Last Admin: 10/10/18 22:59 Dose: 50 units Insulin Human Regular (Humulin R Med) 0 units SC ACHS [facility]; Protocol Last Admin: 10/11/18 11:48 Dose: 1 units Lisinopril (Zestril) 10 mg PO QAM [facility] Last Admin: 10/11/18 10:46 Dose: 10 mg Pantoprazole Sodium (Protonix Inj) 40 mg IVP DAILY [facility] Last Admin: 10/11/18 10:44 Dose: 40 mg - Labs Labs: 10/11/18 04:00 10/11/18 04:00 Attending/Attestation - Attestation I have personally seen and examined this patient.: Yes I have fully participated in the care of the patient.: Yes I have reviewed all pertinent clinical information, including history, physical exam and plan: Yes Notes (Text): 10/11/18 12:02 Attending note; Patient seen and examined with resident. Patient is alert and awake. Denies any chest pain. Complaining of exertional shortness of breath. Denies any nausea, vomiting. Denies any abdominal pain. Denies any urinary, bowel symptoms. Patient is a 57-year-old male with PMHx of CAD s/p CABG x 4, severe s/p TAVR @ [facility], DM, HTN, presents to ED with complaints of 1 week shortness of breath. 1. Chest discomfort and shortness of breath; patient with significant past medical history of coronary disease. showed nonspecific ST-T changes. Cardiac enzymes 3 negative. Echocardiogram ordered. Patient follows up with cardiology Dr. Medrano. Cardiology evaluation requested. 2. Shortness of breath; elevated BNP. Started on IV Lasix. Monitor input and output closely. Daily weight ordered. we will Follow-up echocardiogram. 3. Coronary artery disease and stent placement; continue aspirin, Plavix and Lipitor. 4. Hypertension; continue lisinopril, Lasix and Coreg. 5. Diabetes; continue Levemir. Hold metformin for now. Monitor fingerstick closely. DVT/GI prophylaxis. Upon discharge the patient will follow up with PMD Dr. Medrano. 10/11/18 12:12
[2018-10-11] MEDS ORDERED: Potassium Chloride 20 mEq ER Tab PO ONE (15:00)
--- NOTE | 2018-10-11 17:54 | RAD ---
Date of service: 10/10/2018 HISTORY: chest pain COMPARISON: Comparison is made with 01/07/2013 FINDINGS: LUNGS: Mild pulmonary vascular congestion noted. Otherwise no significant interval changes. PLEURA: No significant pleural effusion identified, no pneumothorax apparent. CARDIOVASCULAR: Atherosclerotic calcification noted at the thoracic aorta. Normal cardiac size. Post cardiac surgery changes are noted. OSSEOUS STRUCTURES: No significant abnormalities. VISUALIZED UPPER ABDOMEN: Normal. OTHER FINDINGS: None. IMPRESSION: Mild pulmonary vascular congestion.
--- NOTE | 2018-10-11 21:32 | CARD ---
APPROVED REPORT Date of service: 10/10/2018 EKG Measurement Heart [id number] <Conclusion> Normal sinus rhythm Nonspecific T wave abnormality Abnormal ECG
[2018-10-11] MEDS: Insulin Detemir 100 units/ml Vial (Levemir) SC SCH (22:45)
--- NOTE | 2018-10-12 00:39 | CON ---
DATE: 10/11/2018 REASON FOR DICTATION: Tyrell Duarte. REASON FOR CONSULTATION: Coronary artery disease, cardiac evaluation, admitted with shortness of breath, history of CABG, history of TAVR, and history of PTCA. BRIEF CLINICAL HISTORY: This is a 57-year-old male with past medical history significant for coronary artery bypass surgery many years ago, history of PTCA of SVG to diagonal 1 in possibly 09/2017, history of severe aortic stenosis, status post TAVR, hypertension, hypothyroidism, came in with complaint of one-week history of progressively worsening shortness of breath, which has been getting worse, so the patient came to the emergency room. The patient used to follow Dr. Jennifer Medrano and Dr. Doug Liz and has been scheduled for stress test 2 weeks from now. Denies any chest pain. PAST MEDICAL HISTORY: Significant for coronary artery disease, status post CABG artery many years ago, history of aortic stenosis, history of TAVR, and history of PTCA of SVG to diagonal. History of last catheterization done by Dr. Doug Liz on 07/23/2017, at that time, the cardiac catheterization revealed left main essentially free of significant disease, bifurcate LAD and circumflex, LAD mid total occluded, circumflex mid 100% occluded, right coronary artery 99% stenosis to mid region, SVG to PDA patent, SVG to obtuse marginal 1 is patent and jump graft to diagonal 1 which is 95% stenosis. Left internal mammary artery to LAD is patent. Ejection fraction 45%, mild global hypokinesis, EDP was in the range of 22. Right heart catheterization as follows; pulmonary capillary wedge pressure 25, PA 64/41, RV 65/15, and RA 18. Cardiac output 4.5 liter/minute and cardiac index 2.6 liter. Calculated aortic valve area is 0.6 cm2 by Hakki's equation. The patient has SVG to diagonal 1, was done PTCA at that time at [facility] on 08/04/2017. Cardiac catheterization was on 07/23/2017. Then later on, the patient had TAVR done. The patient had last echo on 07/23/2017 done in [facility] that reveal ejection fraction 55%, right ventricular function is normal, status post mitral valve repair, aortic valve leaflet [id number] calcification, aortic valve area calculated 0.4 cm2, peak gradient 62 mm, meant gradient 40, and LVOT 1.9 cm2. SOCIAL HISTORY: Denies any smoking. Denies any history of alcohol abuse. CURRENT MEDICATIONS: The patient is on metformin, lisinopril, insulin, furosemide, Lasix, Plavix 75 mg daily, atorvastatin, and aspirin. REVIEW OF SYSTEMS: As per HPI. PHYSICAL EXAMINATION: VITAL SIGNS: As follows; height of the patient 5 feet 7 inches, weight of the patient 144 pounds, and body mass index 22 kg/m2. Temperature afebrile, heart rate 70, and blood pressure 140/80. HEENT: PERRLA. Extraocular muscles are intact. NECK: Supple. No carotid bruit or thyromegaly. CHEST: Clear to auscultation. HEART: S1 and S2 regular. ABDOMEN: Soft. EXTREMITIES: Clubbing and cyanosis negative. LABORATORY DATA: EKG shows normal sinus, rate of 78, and no acute ST-T changes noted. Blood workup; WBC 6.2, hemoglobin 11.2, hematocrit 34.2, and platelet count 230. Chemistry shows sodium 140, potassium 3.6, chloride of 103, carbon dioxide 32, anion gap of 9, BUN of 14, and creatinine 0.9. Troponin 0.4 . Hemoglobin A1c 10.7. Chest x-ray showed mild pulmonary congestion. BNP 1340. IMPRESSION: A 57-year-old male with past medical history significant for coronary artery disease, status post coronary artery bypass graft in the past, history of percutaneous transluminal coronary angioplasty of saphenous vein graft to diagonal 1 on 08/04/2017, history of cardiac catheterization shows elevated right heart pressure as well as pulmonary hypertension as well as occluded left anterior descending, occluded circumflex, occluded right coronary artery, patent graft left internal mammary artery to left anterior descending artery, patent saphenous vein graft to right posterior descending artery, patent saphenous vein graft to obtuse marginal 1 and saphenous vein graft to diagonal with 95% stenosis, which has subsequently percutaneous transluminal coronary angioplasty was done. The patient transcatheter aortic valve replacement done, admitted with acute decompensated congestive heart failure. The patient is scheduled for stress test two weeks by Dr. Medrano recommended, so far no evidence of acute myocardial infarction. RECOMMENDATIONS: We will do echo to assess LV function. Further recommendations will be made after the echo. We will get lipid profile, TSH, and hemoglobin A1c. Repeat the chest x-ray after diuresis. We will continue diuresis. Monitor electrolytes. We will follow with you and transfer care tomorrow to Dr. Duarte. We will give the DVT prophylaxis and continue UMESH inhibitors, low-dose beta-carolyn probably Coreg, atorvastatin and we will follow. Further recommendation depends on hospital course and the finding of initial workup. We will follow with you. Thank you Dr. Cope for providing us the opportunity in taking care of the patient, Adelina Busch. We will transfer care tomorrow to Dr. Fabián Duarte. Bailee Sharp MD
[2018-10-12 07:12] LABS: BASO # 0.04 K/mm3 (0.0-2.0); BASO % 0.6 % (0.0-3.0); EOS # 0.4 (0.0-0.7); EOS % 5.6 % (1.5-5.0); HEMOGLOBIN 11.4 g/dL (14.0-18.0); LYMPH % 30.7 % (22.0-35.0); MEAN CORPUSCULAR HEMOGLOBIN 28.1 pg (25.0-35.0); MEAN CORPUSCULAR HGB CONC 32.7 g/dl (31.0-37.0); MEAN PLATELET VOLUME 10.1 fl (7.0-11.0); MONO # 0.8 (0.1-0.6); MONO % 11.7 % (1.0-6.0); RBC 4.06 10^6/uL (3.5-6.1); WHITE BLOOD COUNT 6.4 10^3/uL (4.5-11.0)
[2018-10-12] MEDS: Insulin Reg-MEDIUM-Coverage SC SCH ×4 (07:39→22:11)
[2018-10-12 07:41] LABS: B-TYPE NATRIURETIC PEPTIDE 449 pg/mL (0-450)
[2018-10-12 07:59] LABS: ALB/GLOB RATIO 1.1 (1.1-1.8); ALBUMIN 3.4 g/dL (3.0-4.8); ALT/SGPT 27 U/L (7-56); AST/SGOT 24 U/L (17-59); BLOOD UREA NITROGEN 18 mg/dL (7-21); GFR NON-AFRICAN AMERICAN > 60
[2018-10-12] MEDS: Enoxaparin 40 mg Syringe SC SCH (09:28)
--- NOTE | 2018-10-12 11:16 | CP.PCM.PN ---
<Essence Walsh - Last Filed: 10/12/18 12:41> Subjective - Date & Time of Evaluation Date of Evaluation: 10/12/18 Time of Evaluation: 11:14 - Subjective Subjective: INTERNAL MEDICINE PROGRESS NOTE FOR DR. LIANA Walsh PGY1 Pt seen and examined at bedside this am. He reports mild SOB with increased SOB with exertion. He otherwise denies 12 point ROS Objective - Vital Signs/Intake and Output Vital Signs (last 24 hours): Temp Pulse Resp BP Pulse Ox 97.9 F 65 20 148/73 99 10/12/18 05:43 10/12/18 10:00 10/12/18 05:43 10/12/18 09:29 10/12/18 05:43 Intake and Output: 10/12/18 10/12/18 06:59 18:59 Intake Total 180 Output Total 0 Balance 180 - Medications Medications: Current Medications Aspirin (Ecotrin) 81 mg PO QAM [facility] Last Admin: 10/12/18 09:28 Dose: 81 mg Atorvastatin Calcium (Lipitor) 80 mg PO QPM [facility] Last Admin: 10/11/18 18:11 Dose: 80 mg Carvedilol (Coreg) 12.5 mg PO BID [facility] Last Admin: 10/12/18 09:28 Dose: 12.5 mg Clopidogrel Bisulfate (Plavix) 75 mg PO DAILY [facility] Last Admin: 10/12/18 09:28 Dose: 75 mg Dextrose (Dextrose 50% Inj) 0 ml IV STAT PRN; Protocol PRN Reason: Hypoglycemia Protocol Enoxaparin Sodium (Lovenox) 40 mg SC DAILY [facility]; Protocol Last Admin: 10/12/18 09:28 Dose: 40 mg Famotidine (Pepcid) 40 mg PO HS [facility] Last Admin: 10/11/18 21:02 Dose: 40 mg Furosemide (Lasix) 40 mg IVP DAILY [facility] Last Admin: 10/12/18 09:29 Dose: 40 mg Dextrose (Dextrose 5% In Water 1000 Ml) 1,000 mls @ 0 mls/hr IV .Q0M PRN; Protocol PRN Reason: Hypoglycemia Protocol Insulin Detemir (Levemir) 50 unit SC [facility] Last Admin: 10/11/18 22:45 Dose: 50 units Insulin Human Regular (Humulin R Med) 0 units SC [facility]; Protocol Last Admin: 10/12/18 07:39 Dose: Not Given Lisinopril (Zestril) 20 mg PO [facility] Last Admin: 10/12/18 09:29 Dose: 20 mg - Labs Labs: 10/12/18 06:50 10/12/18 06:50 - Constitutional Appears: Well, Non-toxic, No Acute Distress - Head Exam Head Exam: NORMAL INSPECTION, NORMOCEPHALIC - Eye Exam Eye Exam: EOMI, Normal appearance - ENT Exam ENT Exam: Mucous Membranes Moist, Normal Exam - Neck Exam Neck Exam: Normal Inspection - Respiratory Exam Respiratory Exam: Clear to Ausculation Bilateral, NORMAL BREATHING PATTERN - Cardiovascular Exam Cardiovascular Exam: REGULAR RHYTHM, +S1, +S2, Murmur - GI/Abdominal Exam GI & Abdominal Exam: Soft, Tenderness - Extremities Exam Extremities Exam: Normal Inspection. absent: Calf Tenderness - Back Exam Back Exam: NORMAL INSPECTION - Neurological Exam Neurological Exam: Alert, Awake, Oriented x3 - Psychiatric Exam Psychiatric exam: Normal Affect, Normal Mood - Skin Skin Exam: Dry, Intact, Warm Assessment and Plan - Assessment and Plan (Free Text) Assessment: 57 y/o M with PMHx of CAD s/p CABG x 4, severe s/p TAVR @ [facility](per pt), DM, HTN, hypothyroidism presents to ED with complaints of 1 week shortness of breath Plan: Acute on Chronic systolic vs diastolic Heart Failure NYHA class III-IV repeat CXR today reveals no acute cardiopulmonary dz. EKG reveals no acute ST/T wave changes from previous EKG. troponin x 3: indeterminate. continue lasix IVP daily echocardiogram pending Cardiology consult. Pending results, may undergo cath Strict I&Os Daily weights CAD s/p CABG x 4 continue DAPT with aspirin/plavix continue atorvastatin lipid panel wnl HTN continue home carvedilol continue home lisinopril IDDM2 pt takes home metformin, on hold for possible cath continue levemir 50u SC HS insulin sliding scale-medium DVT/GI: Lovenox/protonix Case seen, examined and discussed with attending physician, Dr. Shelly Walsh PGY1 <Kristina Bowie - Last Filed: 10/12/18 14:22> Objective - Vital Signs/Intake and Output Vital Signs (last 24 hours): Temp Pulse Resp BP Pulse Ox 97.5 F L 67 18 127/77 99 10/12/18 12:00 10/12/18 12:00 10/12/18 12:00 10/12/18 12:00 10/12/18 05:43 Intake and Output: 10/12/18 10/12/18 06:59 18:59 Intake Total 180 Output Total 0 Balance 180 - Medications Medications: Current Medications Aspirin (Ecotrin) 81 mg PO QAM [facility] Last Admin: 10/12/18 09:28 Dose: 81 mg Atorvastatin Calcium (Lipitor) 80 mg PO QPM [facility] Last Admin: 10/11/18 18:11 Dose: 80 mg Carvedilol (Coreg) 12.5 mg PO BID [facility] Last Admin: 10/12/18 09:28 Dose: 12.5 mg Clopidogrel Bisulfate (Plavix) 75 mg PO DAILY [facility] Last Admin: 10/12/18 09:28 Dose: 75 mg Dextrose (Dextrose 50% Inj) 0 ml IV STAT PRN; Protocol PRN Reason: Hypoglycemia Protocol Enoxaparin Sodium (Lovenox) 40 mg SC DAILY [facility]; Protocol Last Admin: 10/12/18 09:28 Dose: 40 mg Famotidine (Pepcid) 40 mg PO HS [facility] Last Admin: 10/11/18 21:02 Dose: 40 mg Furosemide (Lasix) 40 mg IVP BID [facility] Dextrose (Dextrose 5% In Water 1000 Ml) 1,000 mls @ 0 mls/hr IV .Q0M PRN; Protocol PRN Reason: Hypoglycemia Protocol Insulin Detemir (Levemir) 50 unit SC [facility] Last Admin: 10/11/18 22:45 Dose: 50 units Insulin Human Regular (Humulin R Med) 0 units SC [facility]; Protocol Last Admin: 10/12/18 12:13 Dose: Not Given Lisinopril (Zestril) 20 mg PO QAM [facility] Last Admin: 10/12/18 09:29 Dose: 20 mg - Labs Labs: 10/12/18 06:50 10/12/18 06:50 Attending/Attestation - Attestation I have personally seen and examined this patient.: Yes I have fully participated in the care of the patient.: Yes I have reviewed all pertinent clinical information, including history, physical exam and plan: Yes Notes (Text): Patient seen and examined by me with resident at 10:05 AM on 10/12/18. Case including HPI, physical exam, and assessment and plan discussed with resident. Agree with above with following additions/corrections. Patient is a 57 year old male with past medical history significant for CAD s/p CABG, severe aortic stenosis s/p TAVR, DM2, HTN, and hypothyroidism that presented to the emergency room with shortness of breath for one week that is worsened with exertion. Patient states that he is feeling ok. States he is still feeling a "little short of breath when I move or do something." No shortness of breath at rest. No chest pain or palpitations. No headaches or dizziness. No fevers or chills. No nausea, vomiting, or abdominal pain. No dysuria. Physical exam: General: Awake and alert sitting up in bed in no acute distress HEENT: Normocephalic, atraumatic. Extraocular muscles intact, pupils equal and reactive, no scleral icterus. Oropharynx is pink and moist. No pharyngeal erythema or exudate appreciated. Neck is supple. Cardiovascular: Regular rhythm. Normal S1 and S2. Positive systolic murmur. No rubs or gallops appreciated Pulmonary: Normal respiratory effort. No rhonchi, rales, or wheezing appreciated. Gastrointestinal: Soft, nondistended. Nontender. Positive bowel sounds all 4 quadrants. No guarding. Musculoskeletal: Moves all extremities. No calf tenderness. No edema appr eciated Central nervous system: AAOx3, CN 2-12 grossly intact. Dermatologic: Skin warm and dry. Assessment and plan: Patient is a 57 year old male with past medical history significant for CAD s/p CABG, severe aortic stenosis s/p TAVR, DM2, HTN, and hypothyroidism that presented to the emergency room with shortness of breath for one week that is worsened with exertion. 1. Dyspnea likely secondary to CHF exacerbation. Diastolic vs Systolic. Vascular congestion seen on chest xray 10/10/18, improved today on chest xray. ProBNP was 1340, elevated from baseline. 2D echo results pending. Continue ASA, Lisinopril, and Coreg. Continue IV Lasix. Cardiology following, recommendations appreciated. Continue to monitor ins and outs. Follow up repeat chest xray 2. CAD s/p CABG. Stable. Continue ASA, Plavix, Lisinopril, Coreg, and Lipitor. Cardiology following, recommendations appreciated. Troponin is 0.04 x 3. TSH within normal limits 3. Essential hypertension. Continue Lisinopril and Coreg 4. Insulin dependent DM2. Hgb A1C 10.7. Continue insulin sliding scale. Continue Levemir at bedtime. Continue to monitor accuchecks. 5. GI/DVT prophylaxis. Pepcid/Lovenox 6. Patient is a full code. Case was discussed in detail with the patient regarding current diagnosis and treatment plan. All questions answered.
--- NOTE | 2018-10-12 11:45 | RAD ---
Date of service: 10/12/2018 HISTORY: post diuresis COMPARISON: Portable chest 10/10/2018. FINDINGS: LUNGS: No active pulmonary disease. PLEURA: No significant pleural effusion identified, no pneumothorax apparent. CARDIOVASCULAR: Calcific atherosclerotic changes are seen related to the thoracic aorta. Post CABG changes reiterated as well as cardiac valve stent. Normal cardiac size. No pulmonary vascular congestion. OSSEOUS STRUCTURES: No significant abnormalities. VISUALIZED UPPER ABDOMEN: Normal. OTHER FINDINGS: None. IMPRESSION: No interval acute cardiopulmonary disease appreciated. Post CABG/cardiac valve stent changes reiterated.
--- NOTE | 2018-10-12 15:19 | CARD ---
APPROVED REPORT Date of service: 10/12/2018 EXAM: Two-dimensional and M-mode echocardiogram with Doppler and color Doppler. INDICATION Cardiac Disease: CAD LV Function:SystolicDiastolic Chest Pain 2D DIMENSIONS Left Atrium (2D)4.0 (1.6-4.0cm)IVSd1.4 (0.7-1.1cm) LVDd5.3 (3.9-5.9cm)PWd0.7 (0.7-1.1cm) LVDs4.1 (2.5-4.0cm)LVEF (%)45.0 (>50%) M-Mode DIMENSIONS Aortic Root2.40 (2.2-3.7cm)Aortic Cusp Exc.1.20 (1.5-2.0cm) Aortic Valve AoV Peak Txqmrvbp996.0cm/Oz Peak GR.19mmHg Mitral Valve MV E Widmhohe939.0cm/sMV A Hzvjpvhj278.0cm/sE/A ratio1.7 TDI E/Lateral E'0.0E/Medial E'0.0 Tricuspid Valve TR Peak [id number]/sRAP [id number] Peak Gr.25mmHg [id number] LEFT VENTRICLE The left ventricle is normal size. There is normal left ventricular wall thickness. Proximal septal thickening is noted. The systolic function is mildly to moderately impaired.EF-40% ( approx). There is mild to moderate hypokinesis in the mid-inferoseptal wall. The left ventricular diastolic function is normal. No left ventricle thrombus noted on this study. There is no ventricular septal defect visualized. There is no left ventricular aneurysm. There is no mass noted in the left ventricle. RIGHT VENTRICLE The right ventricle is normal size. There is normal right ventricular wall thickness. The right ventricular systolic function is normal. ATRIA The left atrium is borderline dilated. The right atrium size is normal. The interatrial septum is intact with no evidence for an atrial septal defect. AORTIC VALVE SA/p TAVR, trace AR MITRAL VALVE S/p MV Repair, Trace MR. TRICUSPID VALVE The tricuspid valve leaflets are thickened , but open well. There is mild tricuspid regurgitation.RVSP-35 mmof Hg, There is no tricuspid valve stenosis. There is no tricuspid valve prolapse or vegetation. PULMONIC VALVE The pulmonary valve is normal in structure. There is trace pulmonic valvular regurgitation. There is no pulmonic valvular stenosis. GREAT VESSELS The aortic root is normal in size. The ascending aorta is normal in size. The pulmonary artery is normal. The IVC is normal in size and collapses >50% with inspiration. PERICARDIAL EFFUSION There is no pleural effusion. There is no pericardial effusion. <Conclusion> The left ventricle is normal size. There is normal left ventricular wall thickness. Proximal septal thickening is noted. The systolic function is mildly to moderately impaired.EF-40% ( Approx). There is mild to moderate hypokinesis in the mid-inferoseptal wall. SA/p TAVR, trace AR S/p MV Repair, Trace MR. There is mild tricuspid regurgitation.RVSP-35 mmof Hg, The IVC is normal in size and collapses >50% with inspiration. There is no pericardial effusion.
--- NOTE | 2018-10-12 18:53 | PN ---
DATE: 10/12/2018 SUBJECTIVE: The patient is still complaining shortness of breath. He denies retrosternal chest pain. PHYSICAL EXAMINATION: VITAL SIGNS: Blood pressure 127/77, heart rate 67, temperature 97.5, and respirations 18. HEENT: Normocephalic. CHEST: Diminished breath sounds all the bases. HEART: S1 and S2 regular. EXTREMITIES: No edema. LABORATORY DATA: Today's hemoglobin and hematocrit are 11.4 and 34.9, white count and platelet count are within normal limit. Today's SMA-7 is within normal limit except for anion gap of 8. TSH level is within normal limit. Troponin was 0.04, three times. ProBNP 1540. Chest x-ray was unremarkable except to sternotomy sutures. EKG revealed sinus rhythm with nonspecific T-wave abnormality. Heart rate 78. Preliminary echo revealed moderately depressed ejection fraction and mild pulmonary hypertension. ASSESSMENT: 1. Ischemic cardiomyopathy. 2. Coronary artery disease status post coronary artery bypass surgery. 3. History of transcatheter aortic valve replacement and percutaneous coronary intervention, most recent coronary intervention was performed in 08/2017 with the patient underwent stenting of saphenous vein graft to diagonal artery. RECOMMENDATIONS: Continue Coreg 12.5 mg twice a day, aspirin 81 mg once a day, increase Lasix to 40 mg intravenously twice a day, continue Lipitor at 80 mg once a day, subcutaneous Lovenox to 40 mg once a day, Plavix 75 mg once a day, Zestril 20 mg once a day. Cardiac catheterization will be discussed with the patient. Fabián Duarte MD
[2018-10-12] MEDS: Insulin Detemir 100 units/ml Vial (Levemir) SC SCH (22:08)
[2018-10-13 07:26] LABS: BASO # 0.04 K/mm3 (0.0-2.0); BASO % 0.6 % (0.0-3.0); EOS # 0.3 (0.0-0.7); HEMOGLOBIN 12.6 g/dL (14.0-18.0); LYMPH # 2.1 (1.2-3.4); LYMPH % 31.2 % (22.0-35.0); MEAN CORPUSCULAR HEMOGLOBIN 28.4 pg (25.0-35.0); MEAN CORPUSCULAR HGB CONC 33.1 g/dl (31.0-37.0); MEAN PLATELET VOLUME 10.3 fl (7.0-11.0); MONO # 0.8 (0.1-0.6); MONO % 11.1 % (1.0-6.0); RBC 4.43 10^6/uL (3.5-6.1); RED CELL DISTRIBUTION WIDTH 13.9 % (11.5-14.5); WHITE BLOOD COUNT 6.8 10^3/uL (4.5-11.0)
[2018-10-13 07:34] LABS: INR 1.16; PARTIAL THROMBOPLASTIN TIME 34.8 Seconds (26.9-38.3); PROTHROMBIN TIME 13.1 SECONDS (9.4-12.5)
[2018-10-13 07:39] LABS: ALB/GLOB RATIO 1.1 (1.1-1.8); ALBUMIN 3.6 g/dL (3.0-4.8); ALT/SGPT 25 U/L (7-56); AST/SGOT 37 U/L (17-59); BLOOD UREA NITROGEN 23 mg/dL (7-21); CALCIUM 9.1 mg/dL (8.4-10.5); GFR NON-AFRICAN AMERICAN > 60
[2018-10-13] MEDS: Insulin Reg-MEDIUM-Coverage SC SCH ×4 (08:10→22:03)
[2018-10-13] MEDS ORDERED: Phenylephrine 10 mg/ml Inj ONE (10:09)
[2018-10-13] MEDS ORDERED: Lidocaine 2% Inj (20ml) ONE (10:10)
[2018-10-13] MEDS ORDERED: Iodixanol 320 MG/ML 200 ML BOTTLE IV ONE (10:11)
[2018-10-13] MEDS ORDERED: Iohexol 350mgl/ml 50 ML ONE (10:11)
[2018-10-13] MEDS ORDERED: Iodixanol 320 MG/ML 100 ML BOTTLE IV ONE (10:11)
[2018-10-13] MEDS ORDERED: Midazolam 2 MG/2 ML VIAL ONE ×2 (10:29→11:05)
[2018-10-13] MEDS ORDERED: Sodium Chloride 0.9% 1,000 ML IV SCH (11:30)
--- NOTE | 2018-10-13 14:10 | CARDCATH ---
PROCEDURE DATE: 10/13/2018 CARDIAC CATH AND PTCA HISTORY: The patient is a 57-year-old male who presented with unstable angina and shortness of breath. The patient is status post TAVR, status post PTCA and stent, status post coronary bypass surgery. Cardiac catheterization was performed by Dr. Duarte. I was asked to do an angioplasty. I performed moderate sedation which included the presence of an independent trained observer that assisted in monitoring the patient's level of consciousness and physiologic status. After administration of Versed and fentanyl, my intra-service time was 30 minutes. Through the right femoral sheath, coronary arteriography revealed an occluded circumflex artery. The bypass graft to the diagonal and circumflex artery was visualized. There was a Y graft with a patent graft to the OM. The superior branch of the graft provided flow to the diagonal vessel which revealed 80% in-stent restenosis at its anastomotic site. The patient was started on intravenous Angiomax on the fluoroscopic guide, the guiding catheter was placed in the ostium of the saphenous vein graft. An 0.014 ATW wire was used across the lesion into the diagonal vessel. A 2.0 balloon was utilized to pre-dilate the lesion. This was followed by implantation of a 2.25 x 12 mm drug-eluting stent which was deployed at 14 ounces of pressure. Repeat coronary arteriography revealed an excellent result with no residual stenosis and FIDENCIO III flow. Angio-Seal was used to close the femoral artery site. The patient tolerated the procedure well. In summary, the procedure was a successful PTCA and stent of a diagonal vessel off the LAD through the saphenous vein graft. Cardiac catheterization revealed 80% stenoses in the saphenous vein graft anastomotic site to the diagonal vessel. Coronary arteriography revealed an occluded circumflex artery as well as suboccluded LAD. Given these findings, the patient will need to remain on aspirin indefinitely and Plavix for at least a year and undergo strict cardiac risk reduction program. Ace Mullen MD
--- NOTE | 2018-10-13 18:56 | CP.PCM.PN ---
<Essence Walsh - Last Filed: 10/13/18 18:51> Subjective - Date & Time of Evaluation Date of Evaluation: 10/13/18 Time of Evaluation: 11:00 - Subjective Subjective: INTERNAL MEDICINE PROGRESS NOTE FOR DR. JAMIR Walsh PGY1 Pt seen and examined at bedside this am. Pt has been NPO past midnight for cardiac cath. He reported occasional shortness of breath, especially with walking. He otherwise denied 12 point ROS Objective - Vital Signs/Intake and Output Vital Signs (last 24 hours): Temp Pulse Resp BP Pulse Ox 98.4 F 68 18 147/72 98 10/13/18 18:00 10/13/18 18:00 10/13/18 18:00 10/13/18 18:00 10/13/18 06:00 Intake and Output: 10/13/18 10/13/18 06:59 18:59 Intake Total 720 Output Total 300 Balance 420 - Medications Medications: Current Medications [facility] [place] [facility] [place] Admin: 10/13/18 09:02 Dose: Not Given Atorvastatin Calcium (Lipitor) 80 mg PO QPM [facility] Last Admin: 10/13/18 17:21 Dose: 80 mg Carvedilol (Coreg) 12.5 mg PO BID [facility] Last Admin: 10/13/18 17:21 Dose: 12.5 mg Clopidogrel Bisulfate (Plavix) 75 mg PO DAILY [facility] Last Admin: 10/13/18 09:03 Dose: Not Given Dextrose (Dextrose 50% Inj) 0 ml IV STAT PRN; Protocol PRN Reason: Hypoglycemia Protocol Famotidine (Pepcid) 40 mg PO [facility] Last Admin: 10/12/18 22:09 Dose: 40 mg Furosemide (Lasix) 40 mg IVP BID [facility] Last Admin: 10/13/18 17:20 Dose: 40 mg Dextrose (Dextrose 5% In Water 1000 Ml) 1,000 mls @ 0 mls/hr IV .Q0M PRN; Protocol PRN Reason: Hypoglycemia Protocol Insulin Detemir (Levemir) 50 unit SC [facility] Last Admin: 10/12/18 22:08 Dose: 50 units Insulin Human Regular (Humulin R Med) 0 units SC [facility]; Protocol Last Admin: 10/13/18 16:51 Dose: 3 units Lisinopril (Zestril) 20 mg PO [facility] Last Admin: 10/13/18 09:03 Dose: Not Given - Labs Labs: 10/13/18 07:00 10/13/18 07:00 PT 13.1 SECONDS (9.4-12.5) H 10/13/18 07:00 INR 1.16 10/13/18 07:00 APTT 34.8 Seconds (26.9-38.3) 10/13/18 07:00 - Additional Findings Additional findings: - Constitutional Appears: Well, Non-toxic, No Acute Distress - Head Exam Head Exam: NORMAL INSPECTION, NORMOCEPHALIC - Eye Exam Eye Exam: EOMI, Normal appearance - ENT Exam ENT Exam: Mucous Membranes Moist, Normal Exam - Neck Exam Neck Exam: Normal Inspection - Respiratory Exam Respiratory Exam: Clear to Ausculation Bilateral, NORMAL BREATHING PATTERN - Cardiovascular Exam Cardiovascular Exam: REGULAR RHYTHM, +S1, +S2, Murmur - GI/Abdominal Exam GI & Abdominal Exam: Soft, Tenderness - Extremities Exam Extremities Exam: Normal Inspection. absent: Calf Tenderness - Back Exam Back Exam: NORMAL INSPECTION - Neurological Exam Neurological Exam: Alert, Awake, Oriented x3 - Psychiatric Exam Psychiatric exam: Normal Affect, Normal Mood - Skin Skin Exam: Dry, Intact, Warm Assessment and Plan - Assessment and Plan (Free Text) Assessment: 57 y/o M with PMHx of CAD s/p CABG x 4, severe s/p TAVR @ [facility](per pt), DM, HTN, hypothyroidism presents to ED with complaints of 1 week shortness of breath Plan: Acute on Chronic systolic vs diastolic Heart Failure NYHA class III-IV. Pt NPO, will undergo cardiac cath today continue lasix IVP daily echocardiogram: systolic function mildly-moderately impaired EF%, LV diastolic function is normal Cardiology consult. Pending results, may undergo cath Strict I&Os Daily weights CAD s/p CABG x 4 Hold plavix for cath continue aspirin continue atorvastatin lipid panel wnl HTN continue home carvedilol hold lisinopril for cath IDDM2 pt takes home metformin, on hold for cath continue levemir 50u SC HS insulin sliding scale-medium DVT/GI: Hold lovenox for cath/protonix Case seen, examined and discussed with attending physician, Dr. Jamir Walsh PGY1 <Kristina Bowie - Last Filed: 10/14/18 07:45> Objective - Vital Signs/Intake and Output Vital Signs (last 24 hours): Temp Pulse Resp BP Pulse Ox 98.0 F 68 20 149/83 97 10/14/18 05:41 10/14/18 05:41 10/14/18 05:41 10/14/18 05:41 10/14/18 05:41 Intake and Output: 10/14/18 10/14/18 06:59 18:59 Intake Total 1565 Output Total 1000 Balance 565 - Medications Medications: Current Medications Aspirin (Ecotrin) 81 mg PO QAM [facility] Last Admin: 10/13/18 09:02 Dose: Not Given Atorvastatin Calcium (Lipitor) 80 mg PO QPM [facility] Last Admin: 10/13/18 17:21 Dose: 80 mg Carvedilol (Coreg) 12.5 mg PO BID [facility] Last Admin: 10/13/18 17:21 Dose: 12.5 mg Clopidogrel Bisulfate (Plavix) 75 mg PO DAILY [facility] Last Admin: 10/13/18 09:03 Dose: Not Given Dextrose (Dextrose 50% Inj) 0 ml IV STAT PRN; Protocol PRN Reason: Hypoglycemia Protocol Famotidine (Pepcid) 40 mg PO HS [facility] Last Admin: 10/13/18 22:03 Dose: 40 mg Furosemide (Lasix) 40 mg IVP BID [facility] Last Admin: 10/13/18 17:20 Dose: 40 mg Dextrose (Dextrose 5% In Water 1000 Ml) 1,000 mls @ 0 mls/hr IV .Q0M PRN; Protocol PRN Reason: Hypoglycemia Protocol Insulin Detemir (Levemir) 50 unit SC [facility] Last Admin: 10/13/18 22:03 Dose: 50 units Insulin Human Regular (Humulin R Med) 0 units SC [facility]; Protocol Last Admin: 10/13/18 22:03 Dose: 2 units [facility]inop[facility]Zest[facility]) [facility] [place] Admin: 10/13/18 09:03 Dose: Not Given - Labs Labs: 10/14/18 06:30 10/14/18 06:30 PT 13.1 SECONDS (9.4-12.5) H 10/13/18 07:00 INR 1.16 10/13/18 07:00 APTT 34.8 Seconds (26.9-38.3) 10/13/18 07:00 Attending/Attestation - Attestation I have personally seen and examined this patient.: Yes I have fully participated in the care of the patient.: Yes I have reviewed all pertinent clinical information, including history, physical exam and plan: Yes Notes (Text): Patient seen and examined by me with resident at 11:40 AM on 10/13/18. Case including HPI, physical exam, and assessment and plan discussed with resident. Agree with above with following additions/corrections. Patient is a 57 year old male with past medical history significant for CAD s/p CABG, severe aortic stenosis s/p TAVR, DM2, HTN, and hypothyroidism that presented to the emergency room with shortness of breath for one week that is worsened with exertion. Patient states that he is feeling ok. Patient is s/p cardiac catheterization. Patient denies any pain at cardiac cath site. Patient denies any shortness of breath at time of exam. No chest pain or palpitations. No headaches or dizziness. No fevers or chills. No nausea, vomiting, or abdominal pain. No dysuria. Physical exam: General: Awake and alert lying in bed in no acute distress HEENT: Normocephalic, atraumatic. Extraocular muscles intact, pupils equal and reactive, no scleral icterus. Oropharynx is pink and moist. No pharyngeal eryth sunita or exudate appreciated. Neck is supple. Cardiovascular: Regular rhythm. Normal S1 and S2. Positive systolic murmur. No rubs or gallops appreciated Pulmonary: Normal respiratory effort. No rhonchi, rales, or wheezing appreciated. Gastrointestinal: Soft, nondistended. Nontender. Positive bowel sounds all 4 quadrants. No guarding. Musculoskeletal: Moves all extremities. No calf tenderness. No edema appreciated. Right groin dressing clean, dry, and intact. Central nervous system: AAOx3, CN 2-12 grossly intact. Dermatologic: Skin warm and dry. Assessment and plan: Patient is a 57 year old male with past medical history significant for CAD s/p CABG, severe aortic stenosis s/p TAVR, DM2, HTN, and hypothyroidism that presented to the emergency room with shortness of breath for one week that is worsened with exertion. 1. Acute systolic CHF exacerbation. ProBNP was 1340, elevated from baseline. 2D echo per business support showed left ventricle is normal size, normal left ventricular wall thickness, proximal septal thickening is noted, systolic function is mildly to moderately impaired, EF is approximately 40%, there is mild to moderate hypokinesis in the mid inferoseptal wall, status post TAVR, status post mitral valve repair, there is no pericardial effusion. Continue ASA, Lisinopril, and Coreg. Continue IV Lasix. Cardiology following, recommendations appreciated. Continue to monitor ins and outs. Follow up repeat chest xray 2. CAD s/p CABG. S/P cardiac catheterization today with stent placement of a diagonal vessel off the LAD due to saphenous pain graft. Cardiac catheterization per business support also revealed 80% stenosis in the saphenous vein graft anastomotic site to the diagonal vessel, and occluded circumflex artery as well as suboccluded LAD. Continue ASA, Plavix, Lisinopril, Coreg, and Lipitor. Cardiology following, recommendations appreciated. Troponin is 0.04 x 3. TSH within normal limits 3. Essential hypertension. Continue Lisinopril and Coreg. Continue Lasix. 4. Insulin dependent DM2. Hgb A1C 10.7. Continue insulin sliding scale. Continue Levemir at bedtime. Continue to monitor accuchecks. 5. GI/DVT prophylaxis. Pepcid/Lovenox 6. Patient is a full code. Case was discussed in detail with the patient regarding current diagnosis and treatment plan. All questions answered.
[2018-10-13] MEDS: Insulin Detemir 100 units/ml Vial (Levemir) SC SCH (22:03)
[2018-10-14 05:41] VITALS: O2SAT 97
[2018-10-14 07:08] LABS: BASO # 0.04 K/mm3 (0.0-2.0); BASO % 0.5 % (0.0-3.0); EOS # 0.3 (0.0-0.7); EOS % 3.6 % (1.5-5.0); HEMOGLOBIN 11.6 g/dL (14.0-18.0); LYMPH # 2.3 (1.2-3.4); LYMPH % 28.2 % (22.0-35.0); MEAN CELL VOLUME 85.8 fl (80.0-105.0); MEAN CORPUSCULAR HGB CONC 32.6 g/dl (31.0-37.0); MEAN PLATELET VOLUME 9.6 fl (7.0-11.0); MONO # 0.8 (0.1-0.6); MONO % 9.9 % (1.0-6.0); RBC 4.15 10^6/uL (3.5-6.1); WHITE BLOOD COUNT 8.3 10^3/uL (4.5-11.0)
--- NOTE | 2018-10-14 07:25 | CARDCATH ---
PROCEDURE DATE: 10/13/2018 LEFT HEART CATHETERIZATION The patient is a 57-year-old male, originally from [facility] who has a history of chronic disease status post coronary artery bypass surgery, mitral valve replacement and recently TAVR. The patient underwent stenting to saphenous vein graft anastomosis to diagonal branch in 08/2017. He presented because of shortness of breath. Echocardiography was consistent with ischemic cardiomyopathy. Cardiac catheterization was recommended. The procedure and its risks were explained to the patient, understood and agreed for the procedure. PROCEDURES: After local infiltration with 1% lidocaine, a 6-Turkmen sheath was placed in the right femoral artery. Left and right coronary angiography were performed with 6-Turkmen JL4 and JR4 diagnostic catheters. Saphenous vein graft angiography and WHEAT angiography was performed with 6-Turkmen JR4 diagnostic catheter. The patient tolerated the procedure well without any complications. ANGIOGRAPHIC FINDINGS: New selective injection of the left coronary artery revealed left main to be a normal vessel. Left main bifurcated into an LAD and circumflex artery. LAD was totally occluded in its middle segment and the circumflex artery was totally occluded in its proximal segment. Selective injection of right femoral artery revealed total occlusion of the vessel in its middle segment. Saphenous vein graft angiography to the distal right coronary artery revealed patent graft with good proximal and distal anastomosis and good antegrade and retrograde filling of the distal and the mid RCA segments respectively. Saphenous vein graft angiography saphenous vein graft to diagonal branch and obtuse marginal branch revealed critical stenosis within the previously placed stent in the diagonal branch. The saphenous vein graft to the obtuse marginal branch was patent with good distal anastomosis and it will of the mid circumflex artery up to its mid segment. WHEAT angiography to the LAD revealed patent WHEAT graft with good distal anastomosis. CONCLUSION: Significant disease of the [place] vessels with total occlusion of the mid LAD, proximal circumflex artery, mid RCA, with patent saphenous vein graft to the distal RCA, patent WHEAT graft to the LAD, and 90% stenosis within the stent placed in the anastomosis of saphenous vein graft to the diagonal branch. RECOMMENDATIONS: Case was discussed with interventional cardiology, Dr. Ace Mullen, who will precede with PCI to that in-stent stenosis. Fabián Hannallah, MD [facility] # [id number]
[2018-10-14 07:35] LABS: BLOOD UREA NITROGEN 19 mg/dL (7-21); CALCIUM 8.8 mg/dL (8.4-10.5); GFR NON-AFRICAN AMERICAN > 60
[2018-10-14] MEDS: Insulin Reg-MEDIUM-Coverage SC SCH ×2 (08:00→12:46)
[2018-10-14] MEDS ORDERED: Dextrose 50% SYRINGE Inj (50 ml) IVP STA (08:08)
[2018-10-14] MEDS ORDERED: Dextrose 50% SYRINGE Inj (50 ml) IV PRN (08:09)
--- NOTE | 2018-10-14 09:08 | PN ---
DATE: 10/14/2018 CARDIOLOGY FOLLOWUP SUBJECTIVE: The patient is chest pain free, he is status post PTCA and stent of a diagonal vessel off of a vein graft. PHYSICAL EXAMINATION VITAL SIGNS: Blood pressure 149/83 and heart rates in the 60s. NECK: Negative JVD. LUNGS: Without rales. HEART: Reveal S1 and S2. EXTREMITIES: Without edema. The right groin site is stable. LABORATORY DATA: Hemoglobin is 11.6. Chemistries, BUN and creatinine unremarkable. Glucose is 134. IMPRESSION: 1. Stable angina. 2. Coronary artery disease. 3. Stable post percutaneous transluminal coronary angioplasty and stent. 4. Diabetes mellitus. 5. History of coronary artery bypass surgery. 6. Hypercholesterolemia. Given these findings, the patient is stable post angioplasty. The patient is stable for discharge from a cardiac perspective. He needs to go home on aspirin and Plavix. A cardiac risk reduction program was discussed with the patient. He will follow up with his green building energy engineer, Dr. Medrano in [place]. Ace Mullen MD
--- NOTE | 2018-10-14 12:03 | CP.PCM.DIS ---
<Essence Walsh - Last Filed: 10/14/18 11:58> Provider - Provider Date of Admission: 10/12/18 09:58 Attending physician: Kristina Bowie DO Primary care physician: Jennifer Medrano MD Consults: 10/10/18 19:06 Cardiology Consult Routine Comment: Consulting Provider: Fabián Duarte Consulting Physician: Fabián Duarte Reason for Consult: chest pain/sob 10/11/18 00:32 Transition In Care/Readmission Reduction Routine Comment: Physician Instructions: Reason For Exam: new admit 10/11/18 00:44 Diabetic Education Referral Routine Comment: Physician Instructions: Reason For Exam: new admit Time Spent in preparation of Discharge (in minutes): 45 Diagnosis - Discharge Diagnosis (1) Coronary graft stenosis Status: Resolved (2) Dyspnea Status: Resolved (3) Coronary artery disease Status: Chronic Hospital Course - Lab Results Lab Results: Most Recent Lab Values WBC 8.3 10^3/uL (4.5-11.0) D 10/14/18 06:30 RBC 4.15 10^6/uL (3.5-6.1) 10/14/18 06:30 Hgb 11.6 g/dL (14.0-18.0) L 10/14/18 06:30 Hct 35.6 % (42.0-52.0) L 10/14/18 06:30 MCV 85.8 fl (80.0-105.0) 10/14/18 06:30 MCH 28.0 pg (25.0-35.0) 10/14/18 06:30 MCHC 32.6 g/dl (31.0-37.0) 10/14/18 06:30 RDW 14.0 % (11.5-14.5) 10/14/18 06:30 Plt Count 320 10^3/uL (120.0-450.0) 10/14/18 06:30 MPV 9.6 fl (7.0-11.0) 10/14/18 06:30 Neut % (Auto) 57.8 % (50.0-68.0) 10/14/18 06:30 Lymph % (Auto) 28.2 % (22.0-35.0) 10/14/18 06:30 [place] % (Auto) 9.9 % (1.0-6.0) H 10/14/18 06:30 Eos % (Auto) 3.6 % (1.5-5.0) 10/14/18 06:30 Baso % (Auto) 0.5 % (0.0-3.0) 10/14/18 06:30 Lymph # (Auto) 2.3 (1.2-3.4) 10/14/18 06:30 [place] # (Auto) 0.8 (0.1-0.6) H 10/14/18 06:30 Eos # (Auto) 0.3 (0.0-0.7) 10/14/18 06:30 Baso # (Auto) 0.04 K/mm3 (0.0-2.0) 10/14/18 06:30 Absolute Neuts (auto) 4.79 (1.4-6.5) 10/14/18 06:30 PT 13.1 SECONDS (9.4-12.5) H 10/13/18 07:00 INR 1.16 10/13/18 07:00 APTT 34.8 Seconds (26.9-38.3) 10/13/18 07:00 D-Dimer, Quantitative 221 ng/mlDDU (0-243) 10/10/18 16:12 Sodium 141 mmol/L (132-148) 10/14/18 06:30 Potassium 4.1 mmol/L (3.6-5.0) 10/14/18 06:30 Chloride 106 mmol/L (98-107) 10/14/18 06:30 Carbon Dioxide 31 mmol/L (21-33) 10/14/18 06:30 Anion Gap 8 (10-20) L 10/14/18 06:30 BUN 19 mg/dL (7-21) 10/14/18 06:30 Creatinine 1.0 mg/dl (0.8-1.5) 10/14/18 06:30 Est GFR ( Amer) > 60 10/14/18 06:30 Est GFR (Non-Af Amer) > 60 10/14/18 06:30 POC Glucose (mg/dL) 134 mg/dL (65-110) H 10/14/18 07:42 Random Glucose 67 mg/dL (70-110) L 10/14/18 06:30 Hemoglobin A1c 10.7 % (4.2-6.5) H 10/11/18 04:00 Calcium 8.8 mg/dL (8.4-10.5) 10/14/18 06:30 Phosphorus 3.5 mg/dL (2.5-4.5) 10/13/18 07:00 Magnesium 2.1 mg/dL (1.7-2.2) 10/13/18 07:00 Total Bilirubin 0.3 mg/dL (0.2-1.3) 10/13/18 07:00 AST 37 U/L (17-59) 10/13/18 07:00 ALT 25 U/L (7-56) 10/13/18 07:00 Alkaline Phosphatase 70 U/L (38-126) 10/13/18 07:00 Lactate Dehydrogenase 559 U/L (333-699) 10/10/18 16:12 Total Creatine Kinase 90 U/L (35-230) 10/10/18 16:12 Troponin I 0.04 ng/mL 10/11/18 04:00 NT-Pro-B Natriuret Pep 449 pg/mL (0-450) 10/12/18 06:50 Total Protein 7.0 g/dL (5.8-8.3) 10/13/18 07:00 Albumin 3.6 g/dL (3.0-4.8) 10/13/18 07:00 Globulin 3.4 gm/dL 10/13/18 07:00 Albumin/Globulin Ratio 1.1 (1.1-1.8) 10/13/18 07:00 Triglycerides 76 mg/dL (35-160) 10/11/18 04:00 Cholesterol 135 mg/dL (130-200) 10/11/18 04:00 LDL Cholesterol Direct 87 mg/dL (0-129) 10/11/18 04:00 HDL Cholesterol 28 mg/dL (29-60) L 10/11/18 04:00 TSH 3rd Generation 1.58 mIU/mL (0.46-4.68) 10/11/18 08:10 - Hospital Course Hospital Course: Upon Admission: 57 y/o M with PMHx of CAD s/p CABG x 4, severe s/p TAVR @ [facility](per pt), DM, HTN, hypothyroidism presents to ED with complaints of SOB that's been ongoing for the past week. Pt noted that he can normally walk about 1/2 block without getting short of breath, but recently when he stands up to go to bathroom he feels SOB. Symptoms are worse with exertion, alleviated with rest. He is reporting that he currently feeling short of breath, but denies current chest pain, however reported chest pain to ED staff. Pt had seen his green chain worker/PMD Dr. Medrano yesterday who advised him to visit ED. He had taken aspirin before arriving to ED. He reports that he sleeps with 2 pillows at night, and will feel short of breath if he lies flat. He also reports he has had bilateral leg cramping for several months. Pt recently traveled to [facility] a week ago before chest pain began Hospital Course: Echocardiogram was ordered revealing: "LV is normal size. Normal LV thickness. Proximal septal thickening is noted. Systolic function is mildly to moderately impaired EF-40%. There is mild-moderate hypokinesis in the mid-inferoseptal wall. S/p TAVR, trace AR. S/p MV repair, trace MR. There is mild tricuspid regurgitation. RVSP- 35mmof Hg. The IVC is normal in size and collapses >50% with inspiration. There is no pericardial effusion." CXR revealed post CABG/cardiac valve stent changes reiterated. Pt was evaluated by cardiology. He was taken to bottle label inspector. He underwent successful PTCA & stent of a diagonal vessel off the LAD through the saphenous vein graft. Cardiac catheterization revealed 80% stenoses in the saphenous vein graft anastomotic site to the diagonal vessel. Coronary arteriography revealed an occluded circumflex artery as well as suboccluded LAD. Given these findings, the patient will need to remain on aspirin indefinitely and Plavix for at least a year and undergo strict cardiac risk reduction program. Pt was seen the next morning, and reported improvement in symptoms. He reported improvement in SOB. He was tolerating his diet. Upon Discharge: Pt is feeling better. Vital signs are stable. He was given detailed instructions on medication compliance, outpatient followup and return to ER if symptoms return. Discharge Exam - Head Exam Head Exam: NORMAL INSPECTION, NORMOCEPHALIC - Eye Exam Eye Exam: EOMI, Normal appearance - ENT Exam ENT Exam: Mucous Membranes Moist, Normal Exam - Neck Exam Neck exam: Normal Inspection - Respiratory Exam Respiratory Exam: NORMAL BREATHING PATTERN, UNREMARKABLE - Cardiovascular Exam Cardiovascular Exam: REGULAR RHYTHM, +S1, +S2 - GI/Abdominal Exam GI & Abdominal Exam: Soft. absent: Tenderness - Extremities Exam Extremities exam: normal inspection - Back Exam Back exam: NORMAL INSPECTION - Neurological Exam Neurological exam: Alert, Oriented x3 - Psychiatric Exam Psychiatric exam: Normal Affect, Normal Mood - Skin Skin Exam: Dry, Intact, Warm Discharge Plan - Discharge Medications Prescriptions: RX: Aspirin [Aspirin Chewable] 81 mg PO DAILY #14 ctb Atorvastatin Calcium [Lipitor] 80 mg PO QPM #14 tablet Carvedilol [Coreg] 12.5 mg PO BID #28 tab Clopidogrel [Plavix] 75 mg PO DAILY #14 tab Furosemide [Lasix] 20 mg PO DAILY #14 tablet RX: Insulin Detemir [Levemir] 50 unit SC HS #3 dev RX: Lisinopril [Prinivil] 20 mg PO DAILY #14 tablet RX: MetFORMIN [glucoPHAGE] 1,000 mg PO BID #28 tab - Follow Up Plan Condition: GOOD Disposition: HOME/ ROUTINE Instructions: Coronary Heart Disease, Cardiac Catheterization (DC), Coronary Angioplasty (DC), Chest Pain (DC) Additional Instructions: Please follow up with your primary care doctor and green chain worker, Dr. Medrano, within 3-5 days of discharge Please discuss your recent admission to the hospital with your physician. Please bring all paperwork with you to your appointment. Please resume the medications you were taking previously, with changes noted as follow: You will need to take Aspirin indefinitely and Plavix for at least 1 year Your lisinopril dose has changed from 10mg daily to 20mg daily Your coreg dose has changed from 6.25mg twice a day to 12.5mg twice a day You have been given scripts for 14 days of all of your medications. Please fill and take only as prescribed. Please follow up with your PMD for all further medication refills. If your symptoms return, please visit the nearest emergency room Referrals: Jennifer Medrano MD [Primary Care Provider] - <Kristina Bowie - Last Filed: 10/14/18 16:37> Provider - Provider Date of Admission: 10/12/18 09:58 Attending physician: Kristina Bowie DO Primary care physician: Jennifer Medrano MD Consults: 10/10/18 19:06 Cardiology Consult Routine Comment: Consulting Provider: Fabián Duarte Consulting Physician: Fabián Duarte Reason for Consult: chest pain/sob 10/11/18 00:32 Transition In Care/Readmission Reduction Routine Comment: Physician Instructions: Reason For Exam: new admit 10/11/18 00:44 Diabetic Education Referral Routine Comment: Physician Instructions: Reason For Exam: new admit Hospital Course - Lab Results Lab Results: Most Recent Lab Values WBC 8.3 10^3/uL (4.5-11.0) D 10/14/18 06:30 RBC 4.15 10^6/uL (3.5-6.1) 10/14/18 06:30 Hgb 11.6 g/dL (14.0-18.0) L 10/14/18 06:30 Hct 35.6 % (42.0-52.0) L 10/14/18 06:30 MCV 85.8 fl (80.0-105.0) 10/14/18 06:30 MCH 28.0 pg (25.0-35.0) 10/14/18 06:30 MCHC 32.6 g/dl (31.0-37.0) 10/14/18 06:30 RDW 14.0 % (11.5-14.5) 10/14/18 06:30 Plt Count 320 10^3/uL (120.0-450.0) 10/14/18 06:30 MPV 9.6 fl (7.0-11.0) 10/14/18 06:30 Neut % (Auto) 57.8 % (50.0-68.0) 10/14/18 06:30 Lymph % (Auto) 28.2 % (22.0-35.0) 10/14/18 06:30 [place] % (Auto) 9.9 % (1.0-6.0) H 10/14/18 06:30 Eos % (Auto) 3.6 % (1.5-5.0) 10/14/18 06:30 Baso % (Auto) 0.5 % (0.0-3.0) 10/14/18 06:30 Lymph # (Auto) 2.3 (1.2-3.4) 10/14/18 06:30 [place] # (Auto) 0.8 (0.1-0.6) H 10/14/18 06:30 Eos # (Auto) 0.3 (0.0-0.7) 10/14/18 06:30 Baso # (Auto) 0.04 K/mm3 (0.0-2.0) 10/14/18 06:30 Absolute Neuts (auto) 4.79 (1.4-6.5) 10/14/18 06:30 PT 13.1 SECONDS (9.4-12.5) H 10/13/18 07:00 INR 1.16 10/13/18 07:00 APTT 34.8 Seconds (26.9-38.3) 10/13/18 07:00 D-Dimer, Quantitative 221 ng/mlDDU (0-243) 10/10/18 16:12 Sodium 141 mmol/L (132-148) 10/14/18 06:30 Potassium 4.1 mmol/L (3.6-5.0) 10/14/18 06:30 Chloride 106 mmol/L (98-107) 10/14/18 06:30 Carbon Dioxide 31 mmol/L (21-33) 10/14/18 06:30 Anion Gap 8 (10-20) L 10/14/18 06:30 BUN 19 mg/dL (7-21) 10/14/18 06:30 Creatinine 1.0 mg/dl (0.8-1.5) 10/14/18 06:30 Est GFR ( Amer) > 60 10/14/18 06:30 Est GFR (Non-Af Amer) > 60 10/14/18 06:30 POC Glucose (mg/dL) 134 mg/dL (65-110) H 10/14/18 07:42 Random Glucose 67 mg/dL (70-110) L 10/14/18 06:30 Hemoglobin A1c 10.7 % (4.2-6.5) H 10/11/18 04:00 Calcium 8.8 mg/dL (8.4-10.5) 10/14/18 06:30 Phosphorus 3.5 mg/dL (2.5-4.5) 10/13/18 07:00 Magnesium 2.1 mg/dL (1.7-2.2) 10/13/18 07:00 Total Bilirubin 0.3 mg/dL (0.2-1.3) 10/13/18 07:00 AST 37 U/L (17-59) 10/13/18 07:00 ALT 25 U/L (7-56) 10/13/18 07:00 Alkaline Phosphatase 70 U/L (38-126) 10/13/18 07:00 Lactate Dehydrogenase 559 U/L (333-699) 10/10/18 16:12 Total Creatine Kinase 90 U/L (35-230) 10/10/18 16:12 Troponin I 0.04 ng/mL 10/11/18 04:00 NT-Pro-B Natriuret Pep 449 pg/mL (0-450) 10/12/18 06:50 Total Protein 7.0 g/dL (5.8-8.3) 10/13/18 07:00 Albumin 3.6 g/dL (3.0-4.8) 10/13/18 07:00 Globulin 3.4 gm/dL 10/13/18 07:00 Albumin/Globulin Ratio 1.1 (1.1-1.8) 10/13/18 07:00 Triglycerides 76 mg/dL (35-160) 10/11/18 04:00 Cholesterol 135 mg/dL (130-200) 10/11/18 04:00 LDL Cholesterol Direct 87 mg/dL (0-129) 10/11/18 04:00 HDL Cholesterol 28 mg/dL (29-60) L 10/11/18 04:00 TSH 3rd Generation 1.58 mIU/mL (0.46-4.68) 10/11/18 08:10 Attending/Attestation - Attestation I have personally seen and examined this patient.: Yes I have fully participated in the care of the patient.: Yes I have reviewed all pertinent clinical information, including history, physical exam and plan: Yes Notes (Text): Patient seen and examined by me with resident 10:40AM and prior to discharge on 10/14/18. Case including discharge plan discussed with resident. Agree with above with following additions/corrections. Patient is a 57 year old male with past medical history significant for CAD s/p CABG, severe aortic stenosis s/p TAVR, DM2, HTN, and hypothyroidism that presented to the emergency room with shortness of breath for one week that is worsened with exertion. Please see H&P for full details. Patient was admitted with acute on chronic CHF exacerbation, CAD, HTN, and insulin-dependent type 2 diabetes. Cardiology was consulted and following. ProBNP was 1340. Patient was found have systolic CHF exacerbation. 2D echo per green chain worker showed left ventricle is normal size, normal left ventricular wall thickness, proximal septal thickening is noted, systolic function is mildly to moderately impaired, EF is approximately 40%, there is mild to moderate hypokinesis in the mid inferoseptal wall, status post TAVR, status post mitral valve repair, there is no pericardial effusion. Patient was treated with IV Lasix. Patient was also treated with aspirin, lisinopril, and Coreg. Ins and outs were monitored. Chest x-ray on 10/10/2018 per radiologist showed mild pulmonary vascular congestion. Chest x-ray 10/12/2017 per radiologist showed no interval acute cardiopulmonary disease appreciated. Patient had cardiac catheterization with stent placement of a diagonal vessel of the LAD due to saphenous vein graft. Cardiac catheterization per green chain worker also revealed 80% stenosis in the saphenous vein graft anastomotic site to the diagonal vessel, and occluded circumflex artery as well as suboccluded LAD. Patient was maintained on aspirin, Plavix, lisinopril, Coreg, and Lipitor. Troponins were 0.043. TSH was within normal limits. Patient was continued on insulin sliding scale and Levemir at bedtime for insulin-dependent type 2 diabetes. Hemoglobin A1c was 10.7. Patient was counseled on diet and exercise. Patient was continued on lisinopril, Coreg, and Lasix. Chest pain resolved. Shortness of breath resolved. Patient was cleared for discharge by cardiology. Patient was discharged home. On day of discharge, patient stated she was feeling much better. Shortness of breath was resolved. Patient had mild pain at right groin cardiac catheterization site. Patient denied any chest pain or palpitations. Patient denied nausea or vomiting. No headache or dizziness. No change in vision or light headedness. No fevers or chills. No dysuria or burning with urination. No diarrhea or constipation. Physical exam: General: Awake and alert lying in bed in no acute distress HEENT: Normocephalic, atraumatic. Extraocular muscles intact, pupils equal and reactive, no scleral icterus. Oropharynx is pink and moist. No pharyngeal erythema or exudate appreciated. Neck is supple. Cardiovascular: Regular rhythm. Normal S1 and S2. Positive systolic murmur. No rubs or gallops appreciated Pulmonary: Normal respiratory effort. No rhonchi, rales, or wheezing noah reciated. Gastrointestinal: Soft, nondistended. Nontender. Positive bowel sounds all 4 quadrants. No guarding. Musculoskeletal: Moves all extremities. No calf tenderness. No edema appreciated. Right groin cardiac cath site with no ecchymosis or erythema, no bleeding or discharge. Central nervous system: AAOx3, CN 2-12 grossly intact. 5/5 muscle strength all extremities. Dermatologic: Skin warm and dry. Please see chart for full details. Follow up instructions: Patient to follow-up with his green chain worker and primary care doctor, Dr. Medrano, within 3-5 days of discharge. Patient take medications as prescribed. Patient was given prescriptions for 14 day supply of all medications. Patient to take medications as prescribed. Refills needed on medications from his primary care doctor. All instructions explained to the patient in detail. Patient both understands and agrees to all instructions. Case and instructions were also discussed with patient's via phone. Written instructions also given. Time spent in discharging the patient including chart review, medication reconciliation, discussion with the patient, medical detail representative, consultants, and nursing staff was approximately 40 minutes.
[2018-10-14 12:33] VITALS: BP 162/78; PULSE 64; RESP 18; TEMP 97.7
--- NOTE | 2018-10-14 12:44 | CARD ---
APPROVED REPORT Date of service: 10/13/2018 EKG Measurement Heart [id number] <Conclusion> Normal sinus rhythm Moderate voltage criteria for LVH, may be normal variant ST elevation, consider early repolarization. Nonspecific T wave abnormality Abnormal ECG
--- NOTE | 2018-10-14 12:54 | CARD ---
APPROVED REPORT Date of service: 10/14/2018 EKG Measurement Heart [id number] <Conclusion> Normal sinus rhythm Moderate voltage criteria for LVH, may be normal variant ST-T Changes Probably Early Repolarization.
== END 2018-10-14 14:40 | disposition home or self-care (01) | DRG 247 ==
LOC: ED 15:22 → ERH 17:55 → 2RSO 21:45 → OBSVTOIN 10-12 09:58
PROVIDERS: ADMIT Internal Medicine; ATTEND Hospitalist
PROC: 027034Z Dilation of Coronary Artery, One Artery with Drug-eluting Intraluminal Device, Percutaneous Approach (ICD-10-PCS; principal; 2018-10-13)
PROC: 4A023N7 Measurement of Cardiac Sampling and Pressure, Left Heart, Percutaneous Approach (ICD-10-PCS; 2018-10-13)
PROC: B211YZZ Fluoroscopy of Multiple Coronary Arteries using Other Contrast (ICD-10-PCS; 2018-10-13)
PROC: B212YZZ Fluoroscopy of Single Coronary Artery Bypass Graft using Other Contrast (ICD-10-PCS; 2018-10-13)
DX: I11.0 Hypertensive heart disease with heart failure (principal); T82.855A Stenosis of coronary artery stent, initial encounter; I50.23 Acute on chronic systolic (congestive) heart failure; I25.110 Atherosclerotic heart disease of native coronary artery with unstable angina pectoris; I25.5 Ischemic cardiomyopathy; I25.82 Chronic total occlusion of coronary artery; E03.9 Hypothyroidism, unspecified; I27.20 Pulmonary hypertension, unspecified; E11.9 Type 2 diabetes mellitus without complications; E78.00 Pure hypercholesterolemia, unspecified; Y83.2 Surgical operation with anastomosis, bypass or graft as the cause of abnormal reaction of the patient, or of later complication, without mention of misadventure at the time of the procedure; Z79.4 Long term (current) use of insulin; Z95.2 Presence of prosthetic heart valve; Z95.1 Presence of aortocoronary bypass graft; Z95.5 Presence of coronary angioplasty implant and graft